=== PATIENT | female | born 1960 | race Caucasian/White ===

== ENCOUNTER 2018-12-30 06:49 | Day surgery (SDC) | payer BC ==
[~2018-12-30] VITALS: Ht 165.1 cm; Wt 53.5 kg
[2018-12-30] MEDS ORDERED: PRILOSEC 20MG20 MG PO (08:06)
[2018-12-30] MEDS ORDERED: CYMBALTA 20MG20 MG PO (08:06)
[2018-12-30] MEDS ORDERED: ALIGN (08:09)
[2018-12-30] MEDS ORDERED: BENTYL 10MG10 MG/CAP PO (08:09)
[2018-12-30] MEDS ORDERED: ONE-A-DAY ESSE1 EACH PO (08:10)
[2018-12-30] MEDS ORDERED: TYLENOL 325MG325 MG PO (08:11)
[2018-12-30] MEDS ORDERED: METAMUCIL3.4 GM/Dos (08:11)
[2018-12-30 08:12] VITALS: BP 108/68; PULSE 78; TEMP 98.4
--- NOTE | 2018-12-30 08:20 | NUR ---
TO RAQUEL FROM RADIOLOGY AT 0715- DAUGHTER AT BEDSIDE SLEEP LAB TECHNOLOGIST HERE TO DISCUSS DPOA
--- NOTE | 2018-12-30 08:55 | NUR ---
Initial visit; Patient and daughter thanked Lemon Grower for looking in on her and offering prayer prior to her 'Procedure.'
--- NOTE | 2018-12-30 10:44 | NUR ---
SW met with patient and daughter to complete advanced directives. Patient designated her daughter to be her DPOA-HC. SW and RN witnessed patient's signature. SW provided the original and extra copies to patient. SW also provided a copy for the chart.
[2018-12-30] MEDS ORDERED: NORCO 325 MG-51 TAB PO (13:39)
[2018-12-30 14:20] VITALS: BP 120/76; PULSE 73
--- NOTE | 2018-12-30 14:20 | NUR ---
TO RM 7 PER CART FROM PACU. ALERT ORIENTED X3, TALKING TO STAFF AND DAUGHTER. 02 SAT 97% ON ROOM AIR. COOL WASHCLOTH OVER FORHEAD. CONTINUES TO C/O SLIGHT NAUSEA. RESTING QUIETLY WITH EYES CLOSED.
[2018-12-30 14:35] VITALS: BP 123/73; PULSE 72
--- NOTE | 2018-12-30 14:35 | NUR ---
RECEIVED A FRESH COOL WASHCLOTH OVER FOREHEAD. RECEIVED ICE CHIPS.
[2018-12-30 14:44] VITALS: TEMP 97.5
[2018-12-30 14:50] VITALS: BP 129/75; PULSE 72
--- NOTE | 2018-12-30 14:50 | NUR ---
RECEIVED CRACKERS C/O HEADACHE AND INCISIONAL PAIN 06/27. C/O FEELING SLIGHTLY QUEZZY.
--- NOTE | 2018-12-30 15:00 | NUR ---
ATE 1 CRACKER AND TOLERATED WELL. C/O PAIN 2-3 AND DENIES NEED FOR PAIN MEDS. AMBULATED TO BATHROOM AND VOIDED.
--- NOTE | 2018-12-30 15:25 | NUR ---
RECEIVED DISCHARGE INSTRUCTIONS AND VERBALIZED UNDERSTANDING. DISCONTINUED IV AND INT- CATHETER INTACT. PATIENT GETTING DRESSED.
--- NOTE | 2018-12-30 15:58 | NUR ---
DISCHARGED PER WC BY NURSING STAFF TO PRIVATE CAR IN CARE OF DAUGHTER.
== END 2018-12-30 16:00 | disposition home or self-care (01) ==
LOC: SDCO 06:49
DX: C50.412 Malignant neoplasm of upper-outer quadrant of left female breast (principal); Z17.0 Estrogen receptor positive status [ER+]; K58.9 Irritable bowel syndrome, unspecified; F17.210 Nicotine dependence, cigarettes, uncomplicated; G47.33 Obstructive sleep apnea (adult) (pediatric); K21.9 Gastro-esophageal reflux disease without esophagitis; K44.9 Diaphragmatic hernia without obstruction or gangrene; F41.9 Anxiety disorder, unspecified; Z83.3 Family history of diabetes mellitus; Z82.3 Family history of stroke; Z82.49 Family history of ischemic heart disease and other diseases of the circulatory system
CPT/HCPCS: A9541; J2250; J2405; J2704; J3010; J7120

== ENCOUNTER 2018-12-30 22:29 | Emergency (ER) | payer BC ==
[~2018-12-30] VITALS: Ht 165.1 cm; Wt 53.6 kg
[~2018-12-30 22:29] MED LIST: ALIGN; BENTYL 10MG10 MG/CAP PO; CYMBALTA 20MG20 MG PO; METAMUCIL3.4 GM/Dos; NORCO 325 MG-51 TAB PO; ONE-A-DAY ESSE1 EACH PO; PRILOSEC 20MG20 MG PO; TYLENOL 325MG325 MG PO
[2018-12-30 22:40] VITALS: TEMP 97.9
[2018-12-30 22:56] LABS: BASO % 0.3 % (0.0-2.0); EOS # 0.1 (0.0-0.7); EOS % 0.7 % (0-4.0); GRAN # 8.1 (1.4-6.5); GRAN % 77.6 % (42.2-75.2); HEMOGLOBIN 12.1 g/dl (12.5-16.0); LYMPH # 1.2 (1.2-3.4); LYMPH % 11.4 % (20.0-51.0); MEAN CELL VOLUME 89 fl (80.0-100.0); MEAN CORPUSCULAR HEMOGLOBIN 30 pg (27.0-31.0); MEAN CORPUSCULAR HGB CONC 34 g/dl (33.0-37.0); MEAN PLATELET VOLUME 9.7 fl (7.4-10.4); MONO % 9.6 % (1.7-9.3); PLATELET COUNT 187 K/mm3 (130-400); RED BLOOD COUNT 4.03 M/mm3 (4.10-5.30); REDCELL DISTRIBUTION WIDTH-CV 13.1 % (11.5-14.5)
[2018-12-30 23:09] LABS: ALANINE AMINOTRANSFERASE 17 U/L (9-52); ALBUMIN 4.1 gm/dL (3.5-5.0); ALKALINE PHOSPHATASE 71 U/L (50-136); ANION GAP 8 mmol/L (7-16); AST,SGOT 28 U/L (15-37); BILIRUBIN,TOTAL 0.5 mg/dL (0.0-1.0); BLOOD UREA NITROGEN 21 mg/dL (7-17); C-REACTIVE PROTEIN 1.1 mg/dL (0.0-0.9); CALCIUM 9.3 mg/dL (8.4-10.2); CARBON DIOXIDE 27 mmol/L (22-30); CHLORIDE 103 mmol/L (98-107); CREATININE, serum 0.58 (0.52-1.25); GLUCOSE 133 mg/dL (74-106); POTASSIUM 3.9 mmol/L (3.4-5.0); SODIUM 138 mmol/L (137-145); TOTAL PROTEIN 7.3 gm/dL (6.4-8.2)
[2018-12-30 23:19] LABS: TROPONIN-I < 0.012 ng/mL (0.000-0.035)
[2018-12-31 00:47] LABS: COLLECTION METHOD CLEAN CATCH
[2018-12-31 00:52] LABS: MUCOUS Present /lpf; PH 5 (5-8); SQUAMOUS EPITHELIAL 0-2 /hpf; URINE APPEARANCE Clear; URINE BACTERIA None Seen /hpf; URINE BILIRUBIN Negative (NEGATIVE); URINE BLOOD Negative (NEGATIVE); URINE COLOR Yellow; URINE GLUCOSE Negative (NEGATIVE); URINE KETONE 1+ (NEGATIVE); URINE LEUKOCYTE ESTERASE Trace (NEGATIVE); URINE NITRATE Negative (NEGATIVE); URINE PROTEIN(semi-quant) Negative (NEGATIVE); URINE RBC 0-2 /hpf; URINE UROBILINOGEN Negative (NEGATIVE)
[2018-12-31 01:32] VITALS: BP 98/67; PULSE 70
== END 2018-12-31 01:34 | disposition home or self-care (01) ==
LOC: COL.ER 22:29
PROVIDERS: Emergency Medicine
DX: R53.1 Weakness (principal); F17.210 Nicotine dependence, cigarettes, uncomplicated; K58.9 Irritable bowel syndrome, unspecified; Z90.12 Acquired absence of left breast and nipple; Z85.3 Personal history of malignant neoplasm of breast
CPT/HCPCS: J2405; J7030

== ENCOUNTER 2019-01-11 09:19 | Day surgery (SDC) | payer BC ==
[~2019-01-11] VITALS: Ht 165.1 cm; Wt 52.0 kg
[2019-01-11 10:01] VITALS: BP 109/57; PULSE 80; TEMP 98
[2019-01-11] MEDS ORDERED: NORCO 325 MG-51 TAB PO (10:12)
--- NOTE | 2019-01-11 10:14 | NUR ---
TO RM AT 0931- CALL LIGHT IN REACH DAUGHTER AT BEDSIDE.
--- NOTE | 2019-01-11 11:07 | NUR ---
SCOPOLAMINE PATCH PLACED PER ORDER SALONI MANUSCRIPT READER
[2019-01-11 12:31] VITALS: TEMP 97.5
[2019-01-11 12:45] VITALS: BP 129/76; PULSE 73
--- NOTE | 2019-01-11 12:45 | NUR ---
TO RM 7 PER CART FROM PACU. ALERT ORIENTED X 3, TALKING TO STAFF AND DAUGHTER. DENIES PAIN OR DISCOMFORT. DENIES NAUSEA OR VOMITING. DRESSING CLEAN DRY INTACT. DALILA DRAIN HAS BLOOD NOTED IN TUBING,BUT NONE IN BULB.
[2019-01-11 12:50] VITALS: BP 131/75; PULSE 74
--- NOTE | 2019-01-11 12:50 | NUR ---
RECEIVED YULIYA AND CARLOS.
[2019-01-11 13:15] VITALS: BP 137/74; PULSE 76
--- NOTE | 2019-01-11 13:15 | NUR ---
AMBULATED TO BATHROOM WITH ASSIST AND TOLERATED WEL VOIDED AND AMBULATED BACK TO
--- NOTE | 2019-01-11 13:30 | NUR ---
RECEIVED DISCHARGE INSTRUCTIONS AND VERBALIZED UNDERSTANDING WITH DAUGHTER AT BEDSIDE. DR BARNES TALKED TO PATIENT DAUGHTER.
--- NOTE | 2019-01-11 13:45 | NUR ---
DISCHARGED PER WC BY NURSING STAFF TO PRIVATE CAR IN CARE OF DAUGHTER SAI
== END 2019-01-11 14:11 | disposition home or self-care (01) ==
LOC: SDCO 09:19
DX: M96.843 Postprocedural seroma of a musculoskeletal structure following other procedure (principal); Z90.12 Acquired absence of left breast and nipple; C50.412 Malignant neoplasm of upper-outer quadrant of left female breast; Z79.899 Other long term (current) drug therapy; K58.9 Irritable bowel syndrome, unspecified; G47.30 Sleep apnea, unspecified; F17.210 Nicotine dependence, cigarettes, uncomplicated; Z79.82 Long term (current) use of aspirin; G47.33 Obstructive sleep apnea (adult) (pediatric); K21.9 Gastro-esophageal reflux disease without esophagitis; K44.9 Diaphragmatic hernia without obstruction or gangrene; F41.9 Anxiety disorder, unspecified
CPT/HCPCS: J1100; J2405; J2704; J7120

== ENCOUNTER 2020-02-17 14:49 | Inpatient (IN) | payer BC ==
[~2020-02-17] VITALS: Ht 165.1 cm; Wt 58.0 kg
[2020-02-17] MEDS ORDERED: ASPIRIN 81M81 MG/TA2 PO (17:06)
[2020-02-17] MEDS ORDERED: ARIMIDEX1 MG PO (17:06)
[2020-02-17] MEDS ORDERED: CALCIUM 600MG+D1 TAB PO (17:07)
[2020-02-17] MEDS ORDERED: LIPITOR20 MG PO (17:07)
[2020-02-17] MEDS ORDERED: CHANTIX START M1 TAB PO (17:07)
[2020-02-17] MEDS ORDERED: OMEGA-3 1000 MG1 CAP PO (17:08)
[2020-02-17 17:29] VITALS: BP 110/71; PULSE 114; TEMP 98.3
[2020-02-17 18:03] LABS: BASO # 0.1 (0.0-0.2); BASO % 0.9 % (0.0-2.0); EOS # 0.9 (0.0-0.7); EOS % 7.9 % (0-4.0); GRAN # 7.4 (1.4-6.5); GRAN % 66.8 % (42.2-75.2); HEMOGLOBIN 11.5 g/dl (12.5-16.0); LYMPH # 1.5 (1.2-3.4); LYMPH % 13.6 % (20.0-51.0); MEAN CELL VOLUME 91 fl (80.0-100.0); MEAN CORPUSCULAR HEMOGLOBIN 30 pg (27.0-31.0); MEAN CORPUSCULAR HGB CONC 33 g/dl (33.0-37.0); MEAN PLATELET VOLUME 8.9 fl (7.4-10.4); MONO # 1.1 (0.1-0.6); PLATELET COUNT 389 K/mm3 (130-400); RED BLOOD COUNT 3.88 M/mm3 (4.10-5.30); REDCELL DISTRIBUTION WIDTH-CV 14.6 % (11.5-14.5)
[2020-02-17 18:06] LABS: HEMATOCRIT 35.1 % (37.0-47.0)
[2020-02-17 18:09] LABS: ALBUMIN 4.1 gm/dL (3.5-5.0); BILIRUBIN,TOTAL 0.4 mg/dL (0.0-1.0); CALCIUM 9.6 mg/dL (8.4-10.2); CREATININE, serum 0.61 (0.52-1.25); POTASSIUM 3.6 mmol/L (3.4-5.0); TOTAL PROTEIN 7.5 gm/dL (6.4-8.2)
--- NOTE | 2020-02-17 18:30 | NUR ---
Patient arrived to floor via EMS at approximately 1620. Patient was alert and oriented and able to ambulate to bathroom and transfer to and from bed with SBA. Colostomy to right abdomen has green liquid stool in bag. Midline incision is PRECIOUS, lucius in place, no redness, drainage, edema. NG tube to R nare is clamped, patient denies nausea, states she does have some intermittent abdominal cramping. Patient denies further needs, call light within reach.
[2020-02-17 19:45] VITALS: BP 118/69; PULSE 112; TEMP 98.4
[2020-02-17 23:27] VITALS: BP 118/75; PULSE 115; TEMP 98.5
[2020-02-18 04:25] VITALS: BP 111/78; PULSE 110; TEMP 97.6
--- NOTE | 2020-02-18 05:18 | NUR ---
Patient resting in bed not complaining of pain. I have emptied her ileostomy bag several times throughout the night. NG tube has 0 residual.
[2020-02-18 06:46] LABS: BASO # 0.1 (0.0-0.2); BASO % 0.8 % (0.0-2.0); EOS # 0.9 (0.0-0.7); GRAN # 6.6 (1.4-6.5); GRAN % 66.4 % (42.2-75.2); HEMOGLOBIN 11.4 g/dl (12.5-16.0); LYMPH # 1.3 (1.2-3.4); LYMPH % 12.8 % (20.0-51.0); MEAN CELL VOLUME 90 fl (80.0-100.0); MEAN CORPUSCULAR HEMOGLOBIN 30 pg (27.0-31.0); MEAN CORPUSCULAR HGB CONC 34 g/dl (33.0-37.0); MEAN PLATELET VOLUME 9.1 fl (7.4-10.4); MONO % 10.2 % (1.7-9.3); PLATELET COUNT 391 K/mm3 (130-400); RED BLOOD COUNT 3.77 M/mm3 (4.10-5.30); REDCELL DISTRIBUTION WIDTH-CV 14.8 % (11.5-14.5)
[2020-02-18 06:48] LABS: HEMATOCRIT 33.9 % (37.0-47.0)
[2020-02-18 06:52] LABS: INR 1.1 (0.8-3.0); PROTHROMBIN TIME 12.5 SECONDS (9.7-12.8)
[2020-02-18 06:55] LABS: BILIRUBIN,TOTAL 0.4 mg/dL (0.0-1.0); CALCIUM 9.4 mg/dL (8.4-10.2); CREATININE, serum 0.61 (0.52-1.25); TOTAL PROTEIN 7.4 gm/dL (6.4-8.2)
[2020-02-18 07:09] LABS: PRE ALBUMIN 24.6 mg/dL (17.6-36.0)
[2020-02-18 07:41] VITALS: BP 126/69; PULSE 108; TEMP 98.2
--- NOTE | 2020-02-18 08:15 | NUR ---
NGT residual check, no residual at this time.
--- NOTE | 2020-02-18 10:30 | NUR ---
Patient alert and oriented, answers questions appropriately. See assessment. Abdomen soft, non tender, non distended. Bowel sounds active x4 quads. Ileostomy present to RLQ, stoma pink and protruding. Stool and air noted in ostomy appliance. NGT in place to dependent drainage, no residual on check. NGT irrigated, flushes easily. Patient c/o pain in throat 05/30. No other c/o at this time.
[2020-02-18 11:38] VITALS: BP 131/66; PULSE 109; TEMP 98.3
--- NOTE | 2020-02-18 13:24 | NUR ---
Plan: Patient with reside with DTR until recovered. DTR Jackeline Ha . Assess: SW met with patient about her care and dc plan. Patient gave permission for sw to speak in front of her dtr. Patient reports that she resides in [facility] but will stay with her DTR locally. Alt. contact is son, Brandan Elena . Patient reports pcp is Dr. Jus Gould. RX obtained from [facility]. Patient interested in HHS, No DPOA, No DME use, and no concerns about obtaining medications. Patient indicated that she has no care concerns at the [facility]. Action: EDucated on Home health care and BCBS not covering, gave patient other resource like [facility] and other community supports. Will continue to folloe.
[2020-02-18 16:58] VITALS: BP 118/70; PULSE 110; TEMP 97.7
[2020-02-18 20:57] VITALS: BP 125/79; PULSE 102; TEMP 97.9
--- NOTE | 2020-02-18 21:49 | NUR ---
Patient resting in bed with no complaints of nausea. NG tube discontinued per orders. Patient tolerated well.
[2020-02-18 23:43] VITALS: BP 111/68; PULSE 104; TEMP 98.1
[2020-02-19 03:49] VITALS: BP 107/74; PULSE 95; TEMP 98.2
--- NOTE | 2020-02-19 04:52 | NUR ---
Patient resting in bed. Patient has no complaints of pain or nausea. Tolerating clear liquids well. Patient is voiding and has good output out of her ileostomy. Patient reports she slept better without the NG tube.
[2020-02-19 07:54] LABS: CALCIUM 8.9 mg/dL (8.4-10.2); CREATININE, serum 0.49 (0.52-1.25); MAGNESIUM 1.8 mg/dL (1.6-2.3); POTASSIUM 4.3 mmol/L (3.4-5.0)
[2020-02-19 08:04] VITALS: BP 111/64; PULSE 104; TEMP 97.9
[2020-02-19 11:12] VITALS: BP 121/66; PULSE 103; TEMP 98
[2020-02-19 16:14] VITALS: BP 103/72; PULSE 110; TEMP 98
--- NOTE | 2020-02-19 17:12 | NUR ---
[place] removed from midline incision. Tincture of benzion and steri-strips applied. Edges remain well approximated, no redness or drainage noted.
[2020-02-19 19:40] VITALS: BP 119/62; PULSE 106; TEMP 99.1
--- NOTE | 2020-02-19 22:29 | NUR ---
Patient resting in bed. Patient got up to use the bathroom walking steadily. She has no complaints of pain.
[2020-02-20] VITALS (7 sets, daily range): BP systolic 103–125; BP diastolic 63–71; PULSE 93–112; TEMP 97.5–98.9
--- NOTE | 2020-02-20 05:33 | NUR ---
Patient resting in bed. Patient had a little trouble falling asleep last night but had no complaints of pain. Patient is tolerating full liquid diet.
[2020-02-20 07:00] LABS: CALCIUM 9.4 mg/dL (8.4-10.2); CREATININE, serum 0.47 (0.52-1.25); PHOSPHOROUS 3.8 mg/dL (2.5-4.5); POTASSIUM 5.2 mmol/L (3.4-5.0)
--- NOTE | 2020-02-20 09:45 | NUR ---
HOSPITALIST TEAM ROUNDING, SEE ORDERS.
[2020-02-20 09:53] LABS: BASO # 0.1 (0.0-0.2); EOS # 1.1 (0.0-0.7); EOS % 12.2 % (0-4.0); GRAN # 5.6 (1.4-6.5); GRAN % 60.5 % (42.2-75.2); HEMOGLOBIN 10.9 g/dl (12.5-16.0); LYMPH # 1.4 (1.2-3.4); LYMPH % 15.3 % (20.0-51.0); MEAN CELL VOLUME 92 fl (80.0-100.0); MEAN CORPUSCULAR HEMOGLOBIN 30 pg (27.0-31.0); MEAN CORPUSCULAR HGB CONC 32 g/dl (33.0-37.0); MEAN PLATELET VOLUME 9.5 fl (7.4-10.4); MONO # 0.9 (0.1-0.6); MONO % 9.8 % (1.7-9.3); PLATELET COUNT 392 K/mm3 (130-400); RED BLOOD COUNT 3.67 M/mm3 (4.10-5.30); REDCELL DISTRIBUTION WIDTH-CV 14.7 % (11.5-14.5)
[2020-02-20 09:57] LABS: HEMATOCRIT 33.6 % (37.0-47.0)
--- NOTE | 2020-02-20 12:20 | NUR ---
First visit from chaplain Lawrence. No needs right now.
--- NOTE | 2020-02-20 20:49 | NUR ---
PT IN BED, IS ALERT AND ORIENTED X4. HAS BEEN EMPTYING ILEOSTOMY ON OWN. REPORTS GOOD APPETITE, INDEPENDENT IN ROOM. VOIDING WELL. HAS SL TO RIGHT FOREARM WITHOUT REDNESS OR SWELLING. TAKES HS MEDS INCLUDING ATIVAN 0.5MG PO NOW. STERI STRIPS TO ABD MIDLINE INCISION. DENIES PAIN. WILL MONITOR FOR CHANGES.
[2020-02-21 04:00] VITALS: BP 106/69; PULSE 108; TEMP 97.6
--- NOTE | 2020-02-21 06:00 | NUR ---
PT HAS BEEN EMPTYING OWN ILEOSTOMY THIS SHIFT. DENIES PAIN. UP INDEPENDENTLY IN ROOM AND CONTINUES TO VOID WELL.
[2020-02-21 07:05] VITALS: BP 114/70; PULSE 87; TEMP 99
[2020-02-21 07:06] LABS: CALCIUM 9.9 mg/dL (8.4-10.2); CREATININE, serum 0.52 (0.52-1.25); PHOSPHOROUS 4.8 mg/dL (2.5-4.5)
--- NOTE | 2020-02-21 08:17 | NUR ---
Patient in bed eating breakfast. Alert and oriented x 3. Assessment complete. Denies pain at this time. Ostomy appliance intact with Small amount of semi-liquid stool present, patient states she emptied her appliance early this AM. Midline incision with lucius, edges well approximated. Denies further needs at this time. Patient up independently in room.
--- NOTE | 2020-02-21 09:10 | NUR ---
Parakeet Raiser met with patient to review discharge plan. Patient still plans to return home with her daughter and has no concerns about discharge at this time.
--- NOTE | 2020-02-21 09:59 | NUR ---
Shift assessment complete. Alert and orientated, INT to R hand CDI, Ileostomy bag contains small amount loose light green stool, stoma pink and protruding. Active bowel sounds 4x quadrants. No abd distention noted. Midline abd incision CDI, wound edges perferated intact, steri strips intact. Feels confident about discharged home.
[2020-02-21 10:47] VITALS: BP 102/68; PULSE 112; TEMP 98.6
--- NOTE | 2020-02-21 13:00 | NUR ---
Discharge education provided to patient and daughter. Educated on signs and symptoms of infection. Educated on when to call provider and follow up appointment. Ostomy appliance changed, Educated patient and daughter on how to change appliance. Daughter states she has experience changing out ostomy appliances from previous job. All questions answered. Denies further needs at this time.
--- NOTE | 2020-02-21 14:00 | NUR ---
Patient out by wheelchair with surgical staff and family
--- NOTE | 2020-02-21 14:40 | NUR ---
Manufacturing Associate attended clinical rounds with the team and Hospitalist recommended Home Health for nursing as patient has a new Ostomy. BRYNN met with patient who selected [facility] out of [place] as she will be staying in [place] with her daughter for at least the next couple weeks. BRYNN contacted Julia at [facility] and faxed referral. After reviewing referral, Julia advised they could accept for PT/OT and Nursing. BRYNN faxed orders for PT/OT/Nursing to Julia at [facility]. BRYNN met with patient and patient's daughter to provide update on HH. Patient to discharge today. No additional needs at this time.
== END 2020-02-21 14:00 | disposition home health service (06) | DRG 393 ==
LOC: MEDICAL 14:49 → JCC 16:00
PROVIDERS: Physician Assistant; Student in an Organized Health Care Education/Training Program; ADMIT Internal Medicine
DX: K91.89 Other postprocedural complications and disorders of digestive system (principal); E43 Unspecified severe protein-calorie malnutrition; K56.7 Ileus, unspecified; D64.9 Anemia, unspecified; R00.0 Tachycardia, unspecified; F41.9 Anxiety disorder, unspecified; K58.1 Irritable bowel syndrome with constipation; F32.9 Major depressive disorder, single episode, unspecified; Z93.2 Ileostomy status; Z85.3 Personal history of malignant neoplasm of breast; Z86.73 Personal history of transient ischemic attack (TIA), and cerebral infarction without residual deficits; Z87.891 Personal history of nicotine dependence
CPT/HCPCS: 99223-AI; 99232-AI; 99239; A9284; C9113; J2060; J7030

== ENCOUNTER → 2020-04-26 | Outpatient (CLI) | payer BC ==
[~2020-04-26] MED LIST changes: +ARIMIDEX1 MG PO; +ASPIRIN 81M81 MG/TA2 PO; +CALCIUM 600MG+D1 TAB PO; +CHANTIX START M1 TAB PO; +LIPITOR20 MG PO; +OMEGA-3 1000 MG1 CAP PO
== END ==
LOC: COL.RAD 08:55
DX: K56.699 Other intestinal obstruction unspecified as to partial versus complete obstruction (principal); Z93.2 Ileostomy status

== ENCOUNTER 2020-05-04 08:13 | Inpatient (IN) | payer BC ==
[~2020-05-04] VITALS: Ht 292.1 cm; Wt 61.8 kg
[2020-05-16] VITALS (14 sets, daily range): BP systolic 91–131; BP diastolic 64–80; PULSE 87–118; TEMP 97.5–98.8
--- NOTE | 2020-05-16 06:45 | NUR ---
0551 PATIENT AMBULATED INTO [facility] DAY SURGERY UNIT WITH STEADY GAIT. PATIENT ALERT AND ORIENTED X 4. CONSENT EXPLAINED AND PATIENT SIGNED. LUNGS CTA. HEART SOUNDS S1,S2 AND REGULAR. PEDAL PULSES +2. EDEMA NOTED TO LOWER EXTREMTIES, NO PITTING. PATIENT ORIENTED TO CALL LIGHT. IV STARTED TO RIGHT WRIST WITH 18G BC WITHOUT PROBLEMS.
--- NOTE | 2020-05-16 10:15 | NUR ---
Pt discharged from PACU @ 0930. Awaiting bed availability. Pt able to tolerate sips of juice without nausea. Pain increased, 0.5mg of Dilaudid administered @ 0951. Pt rating pain 5/10 as tolerable. Serosanginous drainage to dressing changed at 1000. Old 4x4 removed and new one placed. Report called @ 1010. Pt to room 322 via cart @ 1015. Pt transported by A Emely CAMPOS with pt's belongings. Pt's daughter called and updated. Pt did not want to take am pills on an empty stomach, reported this to Mauro Fitzgerald RN.
--- NOTE | 2020-05-16 10:15 | NUR ---
PATIENT ADMITED INTO ROOM 322-2. ORIENTED X3 BUT DROWSY. VSS. C/O ABD PAIN WITH MOVEMENT. ABD INCISION WITH KAYLEE NOTED SMALL BLOODY DRAINAGE. PACU CHANGED ABD INCISION GAUZE BEFORE COMING UP TO THE FLOOR. BOWL SOUNDS HYPOACTIVE. NO C/O N/V. IV FLUIDS INFUSING INTO RIGHT WRIST IV. HEAD TO TOE ASSESSMENT COMPLETE. SCD'S TO BLE. PATIENT SLEEPING WITH LIGHTS TURNED DOWN. CALL LIGHT IN REACH.
[2020-05-16 14:46] LABS: HEMATOCRIT 34.4 % (37.0-47.0)
--- NOTE | 2020-05-16 17:30 | NUR ---
PATIENT CALLED OUT C/O SHARP PAIN IN SHOULDER AFTER SITTING UP. NURSING EDUCATED ABOUT POST OP GAS/AIR PAIN. HOB LOWERED AND WARM PACK APPLIED TO RIGHT SHOULDER. PATIENT REPORTS GAS PAIN IMPROVING. CHANGED ABD INCISION DRESSING, NOTED MOD AMOUNTS OF BLOODY DRAINAGE. APPLIED 4X4 GAUZE & HYPAFIX. NO OTHER NEEDS.
--- NOTE | 2020-05-16 20:58 | NUR ---
AMBULATES IN HALLWAY WITHOUT PROBLEM. TO BATHROOM BEFORE GOING TO BED, VOIDS WITHOUT PROBLEM. SL TO RIGHT WRIST. DRSG TO ABD D/I. HAS NOT PASSED FLATUS YET.
--- NOTE | 2020-05-16 21:02 | NUR ---
Falls Of Rough 1 tab po for pain 5/10 to abd.
[2020-05-17 04:00] VITALS: BP 123/68; PULSE 97; TEMP 97.9
--- NOTE | 2020-05-17 04:51 | NUR ---
PT AWAKE, REPORTS BELCHING BUT NO FLATUS. DENIES NEED FOR PAIN MEDS AT THIS TIME.
[2020-05-17 07:35] VITALS: BP 112/51; PULSE 105; PULSE 94; TEMP 98
--- NOTE | 2020-05-17 08:00 | NUR ---
PATIENT IS A&O. VSS. RATES ABD PAIN AT 3/10, DENIES NEED FOR PAIN MEDS. ABD INCISION NOTED VERY SMALL DRAINAGE, APPROX DIME SIZED, TO GAUZE. BOWL SOUNDS PRESENT, NOT PASSING GAS YET. TOLERATING FULL LIQUID DIET. NO C/O N/V. RIGHT WRIST IV TO INT. PATIENT AMBULATING INDEPENDENTLY. GAIT STEADY. HEAD TO TOE ASSESSMENT COMPLETE. NO OTHER NEEDS. CALL LIGHT IN REACH.
--- NOTE | 2020-05-17 10:57 | NUR ---
First visit from the furnace feeder. No needs right now.
--- NOTE | 2020-05-17 12:36 | NUR ---
Principal Associate met with patient to discuss discharge planning. Patient lives in [place] with her , Alek (ph#[phone]) and sees Dr. Johnson for primary care in [place]. Patient obtains medications from [facility] with no difficulties. Patient has a walker at home to use as needed and reports independence with ADLS. Patient has DPOA-HC in EMR which designates her daughter, Julia (ph#[phone]). Patient states she will stay with her daughter Julia in [place] for a couple days upon discharge before returning home. SW will continue to follow as needed.
[2020-05-17 12:49] VITALS: BP 100/54; PULSE 94; TEMP 98.5
[2020-05-17 16:33] VITALS: BP 100/52; PULSE 100; TEMP 97.5
[2020-05-17 20:04] VITALS: BP 99/50; PULSE 110; TEMP 97.4
--- NOTE | 2020-05-17 21:00 | NUR ---
Pt still hasn't passed gas. Ambulating in room without problem. Drsg to abd with old drainage. Is alert and oriented x4. Denies need for pain meds at this time.
[2020-05-17 23:49] VITALS: BP 112/50; PULSE 106; TEMP 98.3
[2020-05-18 04:32] VITALS: BP 112/55; PULSE 106; TEMP 98.3
--- NOTE | 2020-05-18 05:44 | NUR ---
Pt awake, has not had flatus yet, reports "its rumbling". Denies needs at this time.
--- NOTE | 2020-05-18 07:34 | NUR ---
Patient resting in bed. She is alert & oriented. Patient has minimal complatints of pain. Patient bowels quiet. Denies yet passing flatus. RLQ dressing intact. Abdomen soft. Int. Tolerated breakfast without nausea. Will monitor
[2020-05-18] MEDS ORDERED: ULTRAM 50MG TAB50 MG PO (08:08)
[2020-05-18 08:59] VITALS: BP 112/56; PULSE 109; TEMP 98
--- NOTE | 2020-05-18 09:22 | NUR ---
Patient up and ambulated halls, rounded. Anticipating discharge this afternoon. Patient did well. Student nurse assisting with cares.
--- NOTE | 2020-05-18 13:17 | NUR ---
End of clinical day. Report provided to primary nurse. Patient currently in her room, in her bed waiting to be discharged. Pt denies need for anything at this time.
--- NOTE | 2020-05-18 13:54 | NUR ---
Primary nurse was assisted with [id number] patient care by [employer] ADN student Rema Lockhart and [employer] ADM instructor Amna Hoyt RN-BC.
--- NOTE | 2020-05-18 14:00 | NUR ---
Patient ready for discharge. Her daughter here to take her home. Patient wanting to leave. She tolerated lunch & did well. We reviewed all discharge paperwork. Int dc. Script for Ultram given & we reviewed home med list. Activity & diet discussed. Patient denies questions or concerns, she was wheeled out with all belongings. Thankful for cares given
== END 2020-05-18 14:00 | disposition home or self-care (01) | DRG 331 ==
LOC: INPTSU 05-16 05:25 → SURG 05-16 07:30
PROVIDERS: ADMIT Surgery
PROC: 0DBB0ZZ Excision of Ileum, Open Approach (ICD-10-PCS; principal; 2020-05-16 07:30)
DX: K57.92 Diverticulitis of intestine, part unspecified, without perforation or abscess without bleeding (principal)
CPT/HCPCS: J0690; J1100; J1170; J1650; J2270; J2405; J2550; J2704; J2710; J2765; J3010; J7120

== ENCOUNTER 2020-06-06 04:44 | Inpatient (IN) | payer BC ==
[2020-06-06] VITALS (11 sets, daily range): BP systolic 98–118; BP diastolic 53–64; PULSE 85–108; TEMP 98.1–98.2
[~2020-06-06 04:44] MED LIST changes: +ULTRAM 50MG TAB50 MG PO
[2020-06-06 05:12] LABS: HEMOGLOBIN 10.6 g/dl (12.5-16.0); MEAN CELL VOLUME 83 fl (80.0-100.0); MEAN CORPUSCULAR HEMOGLOBIN 26 pg (27.0-31.0); MEAN CORPUSCULAR HGB CONC 32 g/dl (33.0-37.0); PLATELET COUNT 556 K/mm3 (130-400); RED BLOOD COUNT 4.05 M/mm3 (4.10-5.30); REDCELL DISTRIBUTION WIDTH-CV 18.7 % (11.5-14.5)
[2020-06-06 05:13] LABS: HEMATOCRIT 33.7 % (37.0-47.0)
[2020-06-06 05:25] LABS: ALBUMIN 3.6 gm/dL (3.5-5.0); BILIRUBIN,TOTAL 0.6 mg/dL (0.0-1.0); CALCIUM 9.4 mg/dL (8.4-10.2); CREATININE, serum 0.41 (0.52-1.25); POTASSIUM 3.2 mmol/L (3.4-5.0); TOTAL PROTEIN 7.9 gm/dL (6.4-8.2)
[2020-06-06 05:31] LABS: BAND 3 % (0-10); EOSINOPHIL 1 % (0-4); LYMPHOCYTE 21 % (20.0-51.0); NEUTROPHILS 64 % (42.0-75.2); PLATELET ESTIMATE INCREASED (NORMAL)
[2020-06-06 05:32] LABS: ANISOCYTOSIS 1+; HYPOCHROMIA 2+
[2020-06-06 05:56] LABS: C-REACTIVE PROTEIN 35.1 mg/dL (0.0-0.9)
--- NOTE | 2020-06-06 09:10 | NUR ---
PT BROUGHT INTO CT BY STAFF. TRNASFERED TO TABLE. MONTORING EQUIPMENT PLACED.
--- NOTE | 2020-06-06 10:00 | NUR ---
CALLED REPORT TO SLAVA. DR MCLAIN REMOVED 180 CC OF BROWNISH FOUL SMELLING FLUID. SAMPLE OF 60 CC TAKEN TO LAB. PT TAKEN TO ROOM 342 BY STAFF.
[2020-06-06] MEDS ORDERED: COLACE 100100 MG/CAP PO (10:24)
[2020-06-06] MEDS ORDERED: MIRALAX119G PO (10:25)
--- NOTE | 2020-06-06 10:34 | NUR ---
Pt has arrived from radiology. She does have a drain placed to the right upper quadrant. There is a foul smell to it. Incision with lucius intact, no drainage at this time. Dressings are CDI. Pt reports feeling much better than she did. Oriented her to her room, reports that she remembers from her previous stay.
--- NOTE | 2020-06-06 11:45 | NUR ---
Assisted patient to the restroom. She did well with standby assist. She did have complaints of pain to her mid/upper abd and requested some tylenol. Dr Rod called for orders, reported he would be in to see her soon.
--- NOTE | 2020-06-06 22:30 | NUR ---
FLUSHED DRAIN TUBE WITH 5CC NS, HAS PURULENT DRAINAGE COMING FROM ACCORDIAN DRAIN. PT TAKES ACETAMINOPHEN FOR PAIN WELL SCHEDULED TRAMADOL.
[2020-06-07 00:11] VITALS: BP 105/58; PULSE 93; TEMP 97.5
--- NOTE | 2020-06-07 00:15 | NUR ---
TAKES SCHEDULED TRAMADOL AT THIS TIME. IV ANTIBIOTIC INFUSING WITHOUT PROBLEM.
--- NOTE | 2020-06-07 04:40 | NUR ---
SCHEDULED TRAMADOL GIVEN. RATES PAIN TO ABD 1/10.
[2020-06-07 04:46] VITALS: BP 116/71; PULSE 85; TEMP 98
--- NOTE | 2020-06-07 05:30 | NUR ---
Pt reports sore throat, drinking fluids well. IV antibiotic started to right forearm site. Tylenol given for back pain. Has 70cc of purulent drainage from wound drain.
[2020-06-07 07:13] LABS: MEAN CELL VOLUME 86 fl (80.0-100.0); MEAN CORPUSCULAR HGB CONC 30 g/dl (33.0-37.0); MEAN PLATELET VOLUME 9.3 fl (7.4-10.4); PLATELET COUNT 524 K/mm3 (130-400); RED BLOOD COUNT 3.39 M/mm3 (4.10-5.30); REDCELL DISTRIBUTION WIDTH-CV 18.6 % (11.5-14.5)
[2020-06-07 07:27] LABS: CALCIUM 8.7 mg/dL (8.4-10.2); CREATININE, serum 0.38 (0.52-1.25); POTASSIUM 3.4 mmol/L (3.4-5.0)
[2020-06-07 07:41] LABS: HEMOGLOBIN 8.8 g/dl (12.5-16.0); MEAN CORPUSCULAR HEMOGLOBIN 26 pg (27.0-31.0)
[2020-06-07 08:04] LABS: ANISOCYTOSIS 2+; EOSINOPHIL 3 % (0-4); HYPERSEGMENTED POLYS PRESENT; HYPOCHROMIA 3+; LYMPHOCYTE 17 % (20.0-51.0); MYELOCYTE 1 % (0-0); NEUTROPHILS 70 % (42.0-75.2); PLATELET ESTIMATE INCREASED (NORMAL)
[2020-06-07 08:05] LABS: TOXIC GRANULATION PRESENT
[2020-06-07 08:59] VITALS: BP 112/60; PULSE 93; TEMP 97.7
--- NOTE | 2020-06-07 09:05 | NUR ---
No IS in room; RT called and no order for IS at this time.
--- NOTE | 2020-06-07 09:13 | NUR ---
Initial visit; Patient thanked Wrap Yarn Sorter for looking in on her and spoke of her health issues when Wrap Yarn Sorter inquired. Patient's pain has lessened and was receptive to Wrap Yarn Sorter keeping her in Wrap Yarn Sorter's prayers. Wrap Yarn Sorter offered God's blessings.
--- NOTE | 2020-06-07 09:34 | NUR ---
SW met with the patient to discuss discharge plan. The patient lives in [place] with her , Alek (ph#[phone]). She reports independence with ADLs and does not have any DME. The patient's PCP is Dr. Saeed Johnson and she receives her medications from [facility]. She reports no difficulties obtaining her meds. The patient's DPOA-HC is in EMR and it designates her daughter, Em Arora (ph#[phone]). The patient plans to return home with her upon discharge. No additional needs at this time.
--- NOTE | 2020-06-07 09:59 | NUR ---
Patient alert and oriented, answers questions appropriately. See assessment. Abdomen soft, non tender, non distended. Bowel sounds active x4 quads. No flatus, no bowel movement. Abscess drain in place to RUQ, dressing CDI, draining scant amount of brown drainage. Previous ostomy site to RUQ with incision well approximated, lucius intact, dressing changed. Post op exercises reviewed with patient, no c/o at this.
[2020-06-07 12:53] VITALS: BP 119/61; PULSE 96; TEMP 97.5
[2020-06-07 15:44] VITALS: BP 119/68; PULSE 105; TEMP 97.6
--- NOTE | 2020-06-07 17:54 | NUR ---
Abscess drain flushed with 5ml NS at approx 0930 this am.
[2020-06-07 20:03] VITALS: BP 117/62; PULSE 95; TEMP 97.9
--- NOTE | 2020-06-07 20:33 | NUR ---
IRRIGATED WOUND DRAIN WITH 5CC NS, MINIMAL DRAINAGE IN BAG. REPORTS PAIN 04/29. SCHEDULED TRAMADOL GIVEN WITH HS MEDS. UP WITH WALKER TO BATHROOM, STEADY GAIT. SL TO RT FOREARM, FLUSHES WELL.
[2020-06-08 00:27] VITALS: BP 124/68; PULSE 101; TEMP 97.5
--- NOTE | 2020-06-08 04:15 | NUR ---
MEDICATED WITH SCHEDULED TRAMADOL. REPORTS GETTING "A LITTLE" SLEEP.
[2020-06-08 04:50] VITALS: BP 120/67; PULSE 95; TEMP 97.6
[2020-06-08 07:10] LABS: MEAN CELL VOLUME 89 fl (80.0-100.0); MEAN CORPUSCULAR HGB CONC 29 g/dl (33.0-37.0); MEAN PLATELET VOLUME 9.3 fl (7.4-10.4); RED BLOOD COUNT 4.17 M/mm3 (4.10-5.30); REDCELL DISTRIBUTION WIDTH-CV 18.6 % (11.5-14.5)
[2020-06-08 07:13] LABS: HEMATOCRIT 36.9 % (37.0-47.0); HEMOGLOBIN 10.8 g/dl (12.5-16.0); MEAN CORPUSCULAR HEMOGLOBIN 26 pg (27.0-31.0); PLATELET COUNT 642 K/mm3 (130-400)
[2020-06-08 07:37] VITALS: BP 123/63; PULSE 101; TEMP 97.2
[2020-06-08 08:22] LABS: ANISOCYTOSIS 2+; BAND 1 % (0-10); EOSINOPHIL 4 % (0-4); HYPOCHROMIA 3+; LYMPHOCYTE 20 % (20.0-51.0); METAMYELOCYTE 3 % (0-0); MYELOCYTE 6 % (0-0); NEUTROPHILS 57 % (42.0-75.2); PLATELET ESTIMATE INCREASED (NORMAL)
--- NOTE | 2020-06-08 08:59 | NUR ---
Follow-up visit; Patient thanked Associate Product Manager for looking in on her again. Dionna stated she is doing a lot better. Associate Product Manager offered God's blessings.
[2020-06-08 11:21] VITALS: BP 120/72; PULSE 102; TEMP 97.7
[2020-06-08] MEDS ORDERED: FLAGYL500 MG PO (13:53)
[2020-06-08] MEDS ORDERED: AMOXICILLIN 8751 TAB PO (13:53)
[2020-06-08] MEDS ORDERED: ULTRAM 50MG TAB50 MG PO (13:54)
[2020-06-08] MEDS ORDERED: LEVAQUIN 5500 MG/TA1 PO (14:15)
--- NOTE | 2020-06-08 14:42 | NUR ---
Discharge instructions reviewed with patient and daughter, verbalized understanding. Drain care reviewed. Contrast for CT scan sent with patient. Discharged via wheelchair to auto/home with daughter at 1440.
== END 2020-06-08 14:40 | disposition home or self-care (01) | DRG 863 ==
LOC: COL.ER 04:44 → SURG 07:28
PROVIDERS: Emergency Medicine; ADMIT Surgery
PROC: 0W9G30Z Drainage of Peritoneal Cavity with Drainage Device, Percutaneous Approach (ICD-10-PCS; principal; 2020-06-06)
DX: T81.43XA Infection following a procedure, organ and space surgical site, initial encounter (principal); Z87.891 Personal history of nicotine dependence; Z90.49 Acquired absence of other specified parts of digestive tract; Z85.3 Personal history of malignant neoplasm of breast; Y83.8 Other surgical procedures as the cause of abnormal reaction of the patient, or of later complication, without mention of misadventure at the time of the procedure
CPT/HCPCS: A9284; G0378; J1650; J2250; J2543; J3010; J7030; Q9967

== ENCOUNTER 2020-06-09 19:03 | Inpatient (IN) | payer BC, MEDICAID ==
[~2020-06-09] VITALS: Ht 165.1 cm; Wt 57.2 kg
[~2020-06-09 19:03] MED LIST changes: +AMOXICILLIN 8751 TAB PO; +COLACE 100100 MG/CAP PO; +FLAGYL500 MG PO; +LEVAQUIN 5500 MG/TA1 PO; +MIRALAX119G PO
[2020-06-09 20:01] LABS: MEAN CELL VOLUME 86 fl (80.0-100.0); MEAN CORPUSCULAR HEMOGLOBIN 26 pg (27.0-31.0); MEAN CORPUSCULAR HGB CONC 31 g/dl (33.0-37.0); MEAN PLATELET VOLUME 8.6 fl (7.4-10.4); PLATELET COUNT 697 K/mm3 (130-400); RED BLOOD COUNT 4.22 M/mm3 (4.10-5.30); REDCELL DISTRIBUTION WIDTH-CV 18.4 % (11.5-14.5)
[2020-06-09 20:05] LABS: HEMATOCRIT 36.1 % (37.0-47.0)
[2020-06-09 20:13] LABS: ALBUMIN 3.5 gm/dL (3.5-5.0); BILIRUBIN,TOTAL 0.4 mg/dL (0.0-1.0); CALCIUM 9.3 mg/dL (8.4-10.2); CREATININE, serum 0.4 (0.52-1.25); POTASSIUM 3.3 mmol/L (3.4-5.0); TOTAL PROTEIN 7.5 gm/dL (6.4-8.2)
[2020-06-09 20:18] LABS: BAND 4 % (0-10); EOSINOPHIL 2 % (0-4); HYPOCHROMIA 1+; LYMPHOCYTE 17 % (20.0-51.0); METAMYELOCYTE 3 % (0-0); MYELOCYTE 2 % (0-0); NEUTROPHILS 64 % (42.0-75.2)
[2020-06-09 20:19] LABS: ANISOCYTOSIS 1+; OVALOCYTES 1+; PLATELET ESTIMATE INCREASED (NORMAL); POIKILOCYTOSIS 1+; STOMATOCYTE 1+
[2020-06-09 20:20] LABS: TEAR DROP CELLS 1+
[2020-06-09 23:53] VITALS: BP 121/66; PULSE 86; TEMP 98
[2020-06-10] VITALS: BP 121/66; PULSE 86; TEMP 98
--- NOTE | 2020-06-10 00:10 | NUR ---
CHANGED DRSG TO RLQ ABD INCISION WITH STAPLS- BROWNISH SEROUS DRAINAGE NOTED. NO DRAINAGE FROM DRAIN BAG. PT FEELING BETTER EMOTIONAL AND PAIN CONTROLLED AT THIS TIME. ASSISTED TO BR. VOIDED AMBE CLEAR URINE. PT WEARS BRIEFS FOR STRESS INCONTINENCE. BACK TO BED. CALL LIGHT IN REACH. BED ALARM SET. ON FALL RISK D/T WEAKNESS.
[2020-06-10 04:13] VITALS: BP 110/62; PULSE 97; TEMP 98.4
--- NOTE | 2020-06-10 04:47 | NUR ---
HAVING CRAMPING ABD PAIN. MOANING. SEE MAR FOR MS GIVEN. PT DENIES NEED TO VOID YET. INSTRUCTED NEED FOR UA WITH NEXT VOID. CALL LIGHT IN REACH.
--- NOTE | 2020-06-10 04:50 | NUR ---
EMPTIED DRAIN BAG WITH 40CC OF LIGHT SALDANA DRAINAGE. DRAIN SITE HAS SM AMT OF SEROUS DRG NOTED. ABD INCISION WITH HARPER HAS SMALL AMT SEROUS DRAG. BOTH AREAS WITH GAUZE DRSG. HAVING GOOD PAIN RELIEF FROM MS.
[2020-06-10 06:07] LABS: MEAN CELL VOLUME 87 fl (80.0-100.0); MEAN CORPUSCULAR HGB CONC 31 g/dl (33.0-37.0); MEAN PLATELET VOLUME 8.5 fl (7.4-10.4); RED BLOOD COUNT 3.43 M/mm3 (4.10-5.30); REDCELL DISTRIBUTION WIDTH-CV 18.7 % (11.5-14.5)
[2020-06-10 06:08] LABS: HEMATOCRIT 29.8 % (37.0-47.0); HEMOGLOBIN 9.1 g/dl (12.5-16.0); MEAN CORPUSCULAR HEMOGLOBIN 27 pg (27.0-31.0); PLATELET COUNT 539 K/mm3 (130-400)
[2020-06-10 06:15] LABS: ALBUMIN 2.9 gm/dL (3.5-5.0); BILIRUBIN,TOTAL 0.3 mg/dL (0.0-1.0); CALCIUM 8.4 mg/dL (8.4-10.2); CREATININE, serum 0.39 (0.52-1.25); POTASSIUM 3.3 mmol/L (3.4-5.0); TOTAL PROTEIN 6.3 gm/dL (6.4-8.2)
--- NOTE | 2020-06-10 06:39 | NUR ---
UA SENT TO LAB.
[2020-06-10 06:55] LABS: COLLECTION METHOD CLEAN CATCH
[2020-06-10 07:49] LABS: MUCOUS Present /lpf; PH 6 (5-8); SQUAMOUS EPITHELIAL 0-2 /hpf; URINE APPEARANCE Clear; URINE BACTERIA None Seen /hpf; URINE BILIRUBIN Negative (NEGATIVE); URINE BLOOD Negative (NEGATIVE); URINE COLOR Yellow; URINE GLUCOSE Negative (NEGATIVE); URINE KETONE Negative (NEGATIVE); URINE LEUKOCYTE ESTERASE Trace (NEGATIVE); URINE NITRATE Negative (NEGATIVE); URINE PROTEIN(semi-quant) Negative (NEGATIVE); URINE RBC 0-2 /hpf; URINE UROBILINOGEN Negative (NEGATIVE)
[2020-06-10 07:57] VITALS: BP 126/68; PULSE 97; TEMP 98.5
[2020-06-10 11:48] VITALS: BP 126/71; PULSE 100; TEMP 97.9
[2020-06-10 15:10] VITALS: BP 135/82; PULSE 101; TEMP 98.3
--- NOTE | 2020-06-10 18:30 | NUR ---
Patient has been doing well today. She sat up in the chair his afternoon. Changed the dressing to right lower abdomen twice today. Morphine given as needed for pain. No complaints of nausea. Her reddness to her abdomen has not changed this shift. Scant drainage around the drain site. Magna to incision are intact. No other changes at this time. Call light within reach.
--- NOTE | 2020-06-10 19:50 | NUR ---
NOTIFIED DR SOSA FOR CLARIFICATION ORDER ON ANTIBIOTICS. NEW ORDER.
--- NOTE | 2020-06-10 20:00 | NUR ---
PT WEEPING. VERY ANXIOUS. NOTIFIED DR SOSA NEW ORDER. HAVING LEVEL 7/10 ABD PAIN- CRAMPING. SEE MAR NO FLATUS NOTED. DRAIN TO DRG BAG WONT HOLD SUCTION. MIN BROWN DRG WITH REDISH COLOR IN TUBING. CALL LIGHT IN REACH. BED ALARMS SET. SCD'S ON BILAT.
[2020-06-10 21:24] VITALS: BP 131/75; PULSE 99; TEMP 99.3
[2020-06-11 01:37] VITALS: BP 124/75; PULSE 100; TEMP 98.5
[2020-06-11 04:12] VITALS: BP 135/72; PULSE 96; TEMP 98
[2020-06-11 06:42] LABS: CALCIUM 8.4 mg/dL (8.4-10.2); CREATININE, serum 0.35 (0.52-1.25); POTASSIUM 3.3 mmol/L (3.4-5.0)
[2020-06-11 06:43] LABS: MEAN CELL VOLUME 87 fl (80.0-100.0); MEAN CORPUSCULAR HGB CONC 30 g/dl (33.0-37.0); MEAN PLATELET VOLUME 8.7 fl (7.4-10.4); PLATELET COUNT 463 K/mm3 (130-400); RED BLOOD COUNT 3.37 M/mm3 (4.10-5.30); REDCELL DISTRIBUTION WIDTH-CV 18.5 % (11.5-14.5)
[2020-06-11 07:34] LABS: HEMATOCRIT 29.2 % (37.0-47.0); HEMOGLOBIN 8.7 g/dl (12.5-16.0); MEAN CORPUSCULAR HEMOGLOBIN 26 pg (27.0-31.0)
[2020-06-11 08:00] VITALS: BP 131/75; PULSE 100; TEMP 98.8
[2020-06-11 11:10] VITALS: BP 117/66; PULSE 99; TEMP 97.5
[2020-06-11 11:10] LABS: ALBUMIN 2.9 gm/dL (3.5-5.0); BILIRUBIN,TOTAL 0.4 mg/dL (0.0-1.0); CALCIUM 8.4 mg/dL (8.4-10.2); CREATININE, serum 0.35 (0.52-1.25); PHOSPHOROUS 3.9 mg/dL (2.5-4.5); POTASSIUM 3.3 mmol/L (3.4-5.0); TOTAL PROTEIN 6.2 gm/dL (6.4-8.2)
[2020-06-11 11:17] LABS: PRE ALBUMIN 21.5 mg/dL (17.6-36.0)
--- NOTE | 2020-06-11 12:01 | NUR ---
First visit from the sales demonstrator. No needs right now.
--- NOTE | 2020-06-11 14:26 | NUR ---
SW met with the patient to discuss discharge plan and re-admit. The patient recently discharged from the hospital, 06/08, and went and stayed with her daughter, Em, in [place]. She states that she picked up her medications and took them as prescribed. She presented to the ED yesterday with severe cramp like pain in her abdomen and nausea. The patient lives in [place] with her , Alek (ph#[phone]). She reports independence with ADLs and does not have any DME. The patient's PCP is Dr. Saeed Johnson and she receives her medications from [facility]. The patient's DPOA-HC is in EMR and it designates her daugher, Em Arora (ph#[phone]). The patient plans to return to Em's home upon discharge and stay with her for awhile. SW discussed home health and it's benefits. The patient states that she has had home health from [facility] in the past, but is not interested in home health at this time. SW to continue to follow.
[2020-06-11 15:58] VITALS: BP 113/54; PULSE 101; TEMP 98.4
[2020-06-11 19:45] VITALS: BP 107/61; PULSE 91; TEMP 97.8
--- NOTE | 2020-06-11 21:44 | NUR ---
PT REPORTING NAUSEA AND NOT FEELING WELL. ZOFRAN 4MG IVP GIVEN AND AMBULATED IN HALLWAY WITH STAFF FOR GAS PAINS. HAS RT PICC WITH TPN INFUSING WITHOUT PROBLEM. HAS WOUND DRAIN WITH SCANT DRAINAGE, WHEN FLUSHED, LEAKS AT INSERTION SITE. HAS GAUZE DRSG TO OLD ILEOSTOMY SITE, HARPER HAVE BEEN REMOVED, DRSG CHANGED AT THIS TIME.
[2020-06-12 00:29] VITALS: BP 125/63; PULSE 92; TEMP 98.1
[2020-06-12 03:48] VITALS: BP 130/65; PULSE 84; TEMP 98.2
--- NOTE | 2020-06-12 05:00 | NUR ---
MEDICATED WITH MORPHINE 2MG IVP FOR PAIN TO ABD. IS ALERT AND ORIENTED. NO STOOLS THIS SHIFT.
[2020-06-12 07:10] VITALS: BP 105/70; PULSE 93; TEMP 97.8
[2020-06-12 07:23] LABS: MEAN CELL VOLUME 85 fl (80.0-100.0); MEAN CORPUSCULAR HEMOGLOBIN 26 pg (27.0-31.0); MEAN CORPUSCULAR HGB CONC 31 g/dl (33.0-37.0); MEAN PLATELET VOLUME 8.5 fl (7.4-10.4); PLATELET COUNT 480 K/mm3 (130-400); REDCELL DISTRIBUTION WIDTH-CV 18.5 % (11.5-14.5)
[2020-06-12 07:24] LABS: HEMATOCRIT 32.4 % (37.0-47.0)
[2020-06-12 07:40] LABS: ALBUMIN 3.1 gm/dL (3.5-5.0); BILIRUBIN,TOTAL 0.2 mg/dL (0.0-1.0); CALCIUM 8.6 mg/dL (8.4-10.2); CREATININE, serum 0.4 (0.52-1.25); MAGNESIUM 1.9 mg/dL (1.6-2.3); PHOSPHOROUS 3.7 mg/dL (2.5-4.5); POTASSIUM 4.1 mmol/L (3.4-5.0); TOTAL PROTEIN 6.6 gm/dL (6.4-8.2)
[2020-06-12 08:06] LABS: BAND 10 % (0-10); EOSINOPHIL 2 % (0-4); LYMPHOCYTE 15 % (20.0-51.0); METAMYELOCYTE 3 % (0-0); NEUTROPHILS 60 % (42.0-75.2)
[2020-06-12 08:07] LABS: PLATELET ESTIMATE INCREASED (NORMAL)
--- NOTE | 2020-06-12 08:30 | NUR ---
Dressing changed to RUQ incision and drain site. Moderate amount of brown drainage noted to both dressings.
--- NOTE | 2020-06-12 08:38 | NUR ---
Pt alert, sittin up in bed. Pt up to void w/help. Tolerates activity well. Output as chart. Pt back to bed w/dressing and drain intact.
--- NOTE | 2020-06-12 11:03 | NUR ---
Patient alert and oriented, answers questions appropriately. See assessment. Abdomen soft, non tender, non distended. Bowel sounds active x4 quads. +Flatus. +Bowel movement. Incision to RUQ with moderate amount of brown drainage noted, area cleansed, dressing changed. Abscess drain to RUQ with moderate amount of brown drainage noted to dressing, dressing changed. PICC in place to RUE, TPN infusing. Patient c/o generalized abdominal pain 2. No other c/o at this time.
[2020-06-12 11:48] VITALS: BP 102/65; PULSE 96; TEMP 97.2
[2020-06-12 16:28] VITALS: BP 108/54; PULSE 89; TEMP 98.2
[2020-06-12 19:58] VITALS: BP 107/47; PULSE 92; TEMP 97.7
--- NOTE | 2020-06-12 20:04 | NUR ---
Report received, assumed care for prescriptionist. Assessment complete. VS stable. A&Ox3. Denies nausea/shortness of breath. C/O pain to right upper quadrant-described as constant ache-rating pain 04/29. Scheduled tramadol given. Plan of care discussed for this shift to include HS meds/pain meds/dressing change. Denies questions/concerns. Call light in reach. will monitor.
--- NOTE | 2020-06-13 19:50 | NUR ---
Report received, assumed care for cnc machinist 2nd shift. Assessment complete. A&Ox3. Denies nausea/shortness of breath. Rating pain 6/10 to abdomen-described as constant throbbing-meds given per dr order. Dressing to right lower [id number]. has not tolerated much PO-states she has not appetite. +flatus/small BM. Voiding well. Plan of care discussed for this shift to include HS meds/antibiotics/pain control/calling for questions/concerns. Denies needs. Call light in reach. Will monitor.
[2020-06-13 20:00] VITALS: BP 107/64; PULSE 103; TEMP 97.9
[2020-06-14] VITALS (7 sets, daily range): BP systolic 94–109; BP diastolic 48–66; PULSE 68–101; TEMP 97.5–98.4
--- NOTE | 2020-06-14 04:41 | NUR ---
Called with c/o pain/nausea. Rating pain 6/10 on pain scale-described as constant throbbing to abdomen. Morphine given per dr order. Also given Zofran. Denies shortness of breath. States she is still passing gas/voiding without difficulty. TPN continues to infuse to right upper arm PICC at 58ml/hr. Denies any other questions/concerns. Call light in reach. Will monitor.
[2020-06-14 06:45] LABS: BASO # 0.1 (0.0-0.2); BASO % 0.5 % (0.0-2.0); EOS # 0.2 (0.0-0.7); EOS % 2.5 % (0-4.0); GRAN # 6.6 (1.4-6.5); GRAN % 67.1 % (42.2-75.2); LYMPH # 1.7 (1.2-3.4); LYMPH % 17.3 % (20.0-51.0); MEAN CELL VOLUME 87 fl (80.0-100.0); MEAN CORPUSCULAR HGB CONC 30 g/dl (33.0-37.0); MEAN PLATELET VOLUME 9.1 fl (7.4-10.4); MONO # 1.1 (0.1-0.6); MONO % 11.2 % (1.7-9.3); PLATELET COUNT 416 K/mm3 (130-400); RED BLOOD COUNT 3.73 M/mm3 (4.10-5.30); REDCELL DISTRIBUTION WIDTH-CV 19.3 % (11.5-14.5)
[2020-06-14 06:59] LABS: CALCIUM 9.3 mg/dL (8.4-10.2); CREATININE, serum 0.46 (0.52-1.25); MAGNESIUM 2.2 mg/dL (1.6-2.3); PHOSPHOROUS 4.6 mg/dL (2.5-4.5); POTASSIUM 4.2 mmol/L (3.4-5.0)
[2020-06-14 07:00] LABS: HEMATOCRIT 32.6 % (37.0-47.0); HEMOGLOBIN 9.7 g/dl (12.5-16.0); MEAN CORPUSCULAR HEMOGLOBIN 26 pg (27.0-31.0)
--- NOTE | 2020-06-14 08:56 | NUR ---
*Late entry-06/13/20* The patient's RN notified BRYNN that the patient is losing her job and would be interested in applying for disability and Medicaid. BRYNN consulted Financial Counselor, May.
[2020-06-14 10:38] LABS: HEMATOCRIT 33.9 % (37.0-47.0); HEMOGLOBIN 10.2 g/dl (12.5-16.0); MEAN CELL VOLUME 88 fl (80.0-100.0); MEAN CORPUSCULAR HEMOGLOBIN 26 pg (27.0-31.0); MEAN CORPUSCULAR HGB CONC 30 g/dl (33.0-37.0); MEAN PLATELET VOLUME 8.9 fl (7.4-10.4); PLATELET COUNT 461 K/mm3 (130-400); RED BLOOD COUNT 3.87 M/mm3 (4.10-5.30)
[2020-06-14 10:40] LABS: ANISOCYTOSIS 1+; BAND 4 % (0-10); HYPOCHROMIA 2+; LYMPHOCYTE 12 % (20.0-51.0); MYELOCYTE 1 % (0-0); NEUTROPHILS 74 % (42.0-75.2); PLATELET ESTIMATE INCREASED (NORMAL); POLYCHROMASIA 1+
--- NOTE | 2020-06-14 11:40 | NUR ---
BRYNN was notified the patient would like to speak to BRYNN. BRYNN met with the patient. The patient reports that she actually already has Medicaid and provided BRYNN with the card. BRYNN emailed a copy of the Medicaid card to financial counseling.
[2020-06-14 12:01] LABS: PRE ALBUMIN 25.4 mg/dL (17.6-36.0)
--- NOTE | 2020-06-14 13:42 | NUR ---
End of clinical day, patient is currently resting in bed, call light within reach. Wound site clear, dry, and free of drainage.
--- NOTE | 2020-06-14 18:30 | NUR ---
Patient has been doing well today. TPN will finish this evening. Turned the rate down to half, to run at 28ml/hr for a couple hours. Pain for the most part has been controlled with ultram. She needed morphine once this afternoon for pain at 7-8 joanna 0-10scale. Dressing to abdomen changed once today. NO complaints of nausea. Tolerating low fiber diet without issues. She had a small bowel movement around lunch time. No other changes at this time. Call light within reach.
--- NOTE | 2020-06-14 20:00 | NUR ---
Pt in bed, has TPN infusing to right PICC at slow rate, will DC at 2230. Initiated Flagyl IV, infusing well. Takes HS meds without problem. Drsg to abd changed, minimal serous fluid on gauze. Voiding and having stools without problem.
--- NOTE | 2020-06-14 22:30 | NUR ---
DC'd TPN, had been hanging for 24hours.
[2020-06-15 03:58] VITALS: BP 110/59; PULSE 97; TEMP 98
--- NOTE | 2020-06-15 05:00 | NUR ---
SCHEDULED TRAMADOL AND PROTONIX GIVEN. PT HAS NOT HAD ANY MORPHINE THIS SHIFT.
[2020-06-15 06:28] LABS: CALCIUM 9.3 mg/dL (8.4-10.2); CREATININE, serum 0.42 (0.52-1.25)
[2020-06-15 07:31] VITALS: BP 111/68; PULSE 96; TEMP 98
[2020-06-15 11:55] VITALS: BP 112/68; PULSE 106; TEMP 97.5
[2020-06-15 13:32] VITALS: BP 114/71; PULSE 121; TEMP 97.6
--- NOTE | 2020-06-15 13:57 | NUR ---
Patient c/o "heart racing" at approx 1340. Heart rate 120-130, pulse palpable and even. Dr Rod notified, orders obtained. Irina with hospitalist program notified of consult. Tele initiated. Daughter Julia updated per patients request.
[2020-06-15 15:10] LABS: BASO # 0.1 (0.0-0.2); BASO % 0.4 % (0.0-2.0); EOS # 0.2 (0.0-0.7); EOS % 1.8 % (0-4.0); GRAN # 8.3 (1.4-6.5); GRAN % 73.1 % (42.2-75.2); LYMPH # 1.6 (1.2-3.4); LYMPH % 13.7 % (20.0-51.0); MEAN CELL VOLUME 85 fl (80.0-100.0); MEAN CORPUSCULAR HEMOGLOBIN 27 pg (27.0-31.0); MEAN CORPUSCULAR HGB CONC 32 g/dl (33.0-37.0); MEAN PLATELET VOLUME 8.7 fl (7.4-10.4); MONO # 1.1 (0.1-0.6); MONO % 9.9 % (1.7-9.3); PLATELET COUNT 416 K/mm3 (130-400); RED BLOOD COUNT 4.13 M/mm3 (4.10-5.30); REDCELL DISTRIBUTION WIDTH-CV 19.4 % (11.5-14.5)
[2020-06-15 15:11] LABS: HEMATOCRIT 34.9 % (37.0-47.0)
--- NOTE | 2020-06-15 15:14 | NUR ---
Dr Simms here to see patient. Irina, Hospitalist RAMONA here to see patient.
[2020-06-15 16:00] VITALS: BP 120/73; PULSE 117; TEMP 97.6
--- NOTE | 2020-06-15 17:47 | NUR ---
NGT inserted into left nare, connected to LIS, immediate return of brown drainage.
--- NOTE | 2020-06-15 20:00 | NUR ---
PT IN BED. HAS NGT TO LEFT NARE, PLACEMENT CONFIRMED WITH AIR BOLUS. HAS SALDANA DRAINAGE IN CANNISTER AND TUBING. IS ALERT AND ORIENTED X4. NO DRSG TO ABD, NO DRAINAGE FROM OLD ILEOSTOMY SITE OR OLD DRAIN SITE. VOIDING WITHOUT DIFFICULTY. IVF TO RIGHT PICC.
[2020-06-15 20:57] VITALS: BP 114/66; PULSE 100; TEMP 97.4
[2020-06-15 21:09] LABS: COLLECTION METHOD CLEAN CATCH
[2020-06-15 21:25] LABS: AMORPHOUS CRYSTAL Present /uL; PH 8 (5-8); SQUAMOUS EPITHELIAL 0-2 /hpf; URINE APPEARANCE Cloudy; URINE BACTERIA None Seen /hpf; URINE BILIRUBIN Negative (NEGATIVE); URINE BLOOD Negative (NEGATIVE); URINE COLOR Yellow; URINE GLUCOSE Negative (NEGATIVE); URINE KETONE Negative (NEGATIVE); URINE LEUKOCYTE ESTERASE Negative (NEGATIVE); URINE NITRATE Negative (NEGATIVE); URINE PROTEIN(semi-quant) Negative (NEGATIVE); URINE RBC 0-2 /hpf; URINE UROBILINOGEN Negative (NEGATIVE); URINE WBC 0-2 /hpf
--- NOTE | 2020-06-15 22:19 | NUR ---
MORPHINE 2MG IVP GIVEN FOR ABD CRAMPS, WELL DOSE OF MYLICON PO. HAVE NGT OFF AT THIS TIME FOR HS MEDS GIVEN PO.
--- NOTE | 2020-06-15 22:50 | NUR ---
NGT BACK TO LIS.
[2020-06-16 00:48] VITALS: BP 117/58; PULSE 103; TEMP 97.6
--- NOTE | 2020-06-16 04:15 | NUR ---
MORPHINE 2MG IVP GIVEN AT THIS TIME. DID NOT GIVE ORAL TRAMADOL.
[2020-06-16 05:09] VITALS: BP 111/55; PULSE 95; TEMP 98
[2020-06-16 07:34] VITALS: BP 120/71; PULSE 99; TEMP 97.6
--- NOTE | 2020-06-16 07:35 | NUR ---
PATIENT NG TUBE TO LIS. PATIENT ASSISTED BACK TO BED FROM BATHROOM.
[2020-06-16 08:47] LABS: BASO % 0.5 % (0.0-2.0); EOS # 0.2 (0.0-0.7); EOS % 3.4 % (0-4.0); GRAN # 3.9 (1.4-6.5); GRAN % 63.8 % (42.2-75.2); LYMPH # 1.3 (1.2-3.4); LYMPH % 20.7 % (20.0-51.0); MEAN CELL VOLUME 88 fl (80.0-100.0); MEAN CORPUSCULAR HGB CONC 30 g/dl (33.0-37.0); MEAN PLATELET VOLUME 9.1 fl (7.4-10.4); MONO # 0.7 (0.1-0.6); MONO % 10.8 % (1.7-9.3); RED BLOOD COUNT 3.46 M/mm3 (4.10-5.30); REDCELL DISTRIBUTION WIDTH-CV 19.5 % (11.5-14.5)
[2020-06-16 08:48] LABS: HEMATOCRIT 30.3 % (37.0-47.0); HEMOGLOBIN 9.2 g/dl (12.5-16.0); MEAN CORPUSCULAR HEMOGLOBIN 27 pg (27.0-31.0); PLATELET COUNT 310 K/mm3 (130-400)
[2020-06-16 09:00] LABS: CALCIUM 8.6 mg/dL (8.4-10.2); CREATININE, serum 0.47 (0.52-1.25); POTASSIUM 3.9 mmol/L (3.4-5.0)
--- NOTE | 2020-06-16 09:50 | NUR ---
PATIENT SHIFT ASSESSMENT COMPLETE. PATIENT DENIES PAIN AT THIS TIME. NG TUBE CLAMPED FOR AM MEDICATIONS AT THIS TIME. NG SECURED TO LEFT NARE. ABDOMEN IS DISTENDED. ILEOSTOMY REVERSAL SITE REDDENED. BOWEL SOUNDS ACTIVE. POSITIVE PEDAL PULSES EQUAL BILATERALLY. CALL LIGHT WITHIN REACH. PATIENT DENIES ANY NEEDS AT THIS TIME.
--- NOTE | 2020-06-16 10:30 | NUR ---
PATIENT NG TUBE RECONNECTED TO LIS AFTER MORNING MEDICATIONS.
--- NOTE | 2020-06-16 11:30 | NUR ---
PATIENT DENIES PAIN AT THIS TIME. PATIENT NG TUBE CLAMPED PER ORDERS. PATIENT ASSISTED TO BATHROOM AND BACK TO BED. CALL LIGHT WITHIN REACH.
[2020-06-16 12:00] VITALS: BP 131/77; PULSE 100; TEMP 97.5
--- NOTE | 2020-06-16 12:33 | NUR ---
PATIENT TOLERATING SMALL AMOUNTS OF CLEAR LIQUIDS WITHOUT ANY INCREASE IN PAIN OR ANY COMPLAINTS OF NAUSEA. IV FLUID RATE DECREASED TO 100ML/HR PER ORDERS. NO OTHER NEEDS AT THIS TIME.
--- NOTE | 2020-06-16 13:00 | NUR ---
PATIENT REPORTS THAT SHE HAD A LOOSE GREEN COLORED STOOL, AND IS NOW PASSING A LOT OF GAS.
--- NOTE | 2020-06-16 16:30 | NUR ---
Care resumed from [facility]-bedside shift report was obtained. Patient assisted with hygiene. We ambulated halls, she was steady with walker. Dyspnea with exertion. Ivf to PICC per orders. Ice water provided. She deneis nausea. Ng tube clamped. Up to the bathroom & voided, Reports BM today. Scds ble, edema noted. Abdomen soft, rounded. Reddness noted to prior colostomy site. Nj carias.
[2020-06-16 16:59] VITALS: BP 128/72; PULSE 99; TEMP 97.8
--- NOTE | 2020-06-16 17:47 | NUR ---
Patient resting in bed. Her daughter at bedside. She is tolerating a clear liquid dinner tray, just taking it slowly. She refused ultram at this time.
--- NOTE | 2020-06-16 18:56 | NUR ---
RECEIVED CHANGE OF SHIFT REPORT FROM DAY SHIFT NURSE. NG CLAMPED AND IN PLACE.
--- NOTE | 2020-06-16 19:35 | NUR ---
PATIENT RESTING WITH EYES CLOSED/SLEEPING, DOESNOT WAKE WHEN STAFF ENTERS ROOM. OBSERVED BREATHING NONLABORED AND EVEN. IVF INFUSING WITH NO PROBLEMS.
[2020-06-16 19:49] VITALS: BP 126/68; PULSE 99; TEMP 98.3
--- NOTE | 2020-06-16 20:21 | NUR ---
REFUSED SCHEDULED MIRALAX. DENIES NAUSEA/CHEST PAIN/SOA AT THIS TIME. DENIES PASSING FLATUS BUT DENIES ABD BLOATING. NG REMAINS CLAMPED. PATIENT REPORTED AND THIS NURSE OBSERVED DRAINAGE FROM R LATERAL END OF RIGHT UPPER ABD INCISION WHICH HAS REDNESS TO SURROUNDING TISSUE NEAR INCISION BUT DENIES PAIN WITH TOUCH AND NO INDURATION OBSERVED. DRAINAGE INITIALLY SEROUS TO OPAQUE TANNISH/RED TINGED WITH NO ODOR OBSERVED WITH DRAINAGE. FOLDED 4X4 GUAZE APPLIED TO DRAINING SITE COVERED WITH 3 IN PAPER TAPE.
--- NOTE | 2020-06-16 23:15 | NUR ---
PATIENT SLEEPING, DOES NOT WAKE WHEN DOOR TO ROOM IS OPENED BY STAFF. OBSERVED BREATHING NONLABORED AND EVEN. IVF INFUSING WITH NO PROBLEMS. TELE IN PLACE.
[2020-06-17 00:17] VITALS: BP 128/66; PULSE 93; TEMP 97.8
[2020-06-17 03:51] VITALS: BP 118/62; PULSE 95; TEMP 97.7
--- NOTE | 2020-06-17 06:30 | NUR ---
Pt doing well at this time. NG clamped and pt reports feeling okay. Denies any needs at this time, call light within reach
[2020-06-17 06:37] LABS: BASO % 0.3 % (0.0-2.0); EOS # 0.2 (0.0-0.7); EOS % 2.9 % (0-4.0); GRAN % 68.4 % (42.2-75.2); LYMPH # 1.2 (1.2-3.4); LYMPH % 16.2 % (20.0-51.0); MEAN CELL VOLUME 88 fl (80.0-100.0); MEAN CORPUSCULAR HGB CONC 30 g/dl (33.0-37.0); MEAN PLATELET VOLUME 9.4 fl (7.4-10.4); MONO # 0.9 (0.1-0.6); MONO % 11.7 % (1.7-9.3); PLATELET COUNT 300 K/mm3 (130-400); REDCELL DISTRIBUTION WIDTH-CV 18.8 % (11.5-14.5)
[2020-06-17 06:41] LABS: HEMATOCRIT 28.2 % (37.0-47.0); HEMOGLOBIN 8.5 g/dl (12.5-16.0); MEAN CORPUSCULAR HEMOGLOBIN 27 pg (27.0-31.0)
[2020-06-17 06:48] LABS: CALCIUM 8.7 mg/dL (8.4-10.2); CREATININE, serum 0.47 (0.52-1.25); POTASSIUM 3.3 mmol/L (3.4-5.0)
--- NOTE | 2020-06-17 07:20 | NUR ---
CHANGE OF SHIFT REPORT GIVEN TO DAY SHIFT NURSE, SLAVA CAMPOS.
[2020-06-17 07:52] VITALS: BP 125/75; PULSE 96; TEMP 97.5
--- NOTE | 2020-06-17 08:44 | NUR ---
Pt doing well this morning. She reports having liquid stools, she has tolerated her liquid breakfast. She is currently up walking with PT.
--- NOTE | 2020-06-17 11:30 | NUR ---
Discussed drainage from old ostomy site with Dr Simms. Informed him that the dressing was saturated upon my assessment and a new dressing applied.
[2020-06-17 11:45] VITALS: BP 129/67; PULSE 96; TEMP 97.5
--- NOTE | 2020-06-17 12:24 | NUR ---
Pt doing well. Reports pain 4/10, pain medication given. Doing well with NG out. She is currently working on liquid lunch. No other needs verbalized, will continue to monitor
--- NOTE | 2020-06-17 13:13 | NUR ---
Pt does not have much of an appetite right now. Minimal amount of her lunch drank. She is aware that she can have something at any time. No needs verbalized, call light within reach
[2020-06-17 16:24] VITALS: BP 118/72; PULSE 95; TEMP 98.2
[2020-06-17 19:10] VITALS: BP 98/49; PULSE 100; TEMP 98.4
[2020-06-18 01:01] VITALS: BP 101/72; PULSE 79; TEMP 98.6
[2020-06-18 04:40] VITALS: BP 97/55; PULSE 88; TEMP 97.9
[2020-06-18 06:12] LABS: MEAN CELL VOLUME 88 fl (80.0-100.0); MEAN CORPUSCULAR HGB CONC 31 g/dl (33.0-37.0); MEAN PLATELET VOLUME 9.7 fl (7.4-10.4); PLATELET COUNT 268 K/mm3 (130-400); RED BLOOD COUNT 3.15 M/mm3 (4.10-5.30); REDCELL DISTRIBUTION WIDTH-CV 18.8 % (11.5-14.5)
[2020-06-18 06:23] LABS: HEMATOCRIT 27.7 % (37.0-47.0); HEMOGLOBIN 8.5 g/dl (12.5-16.0); MEAN CORPUSCULAR HEMOGLOBIN 27 pg (27.0-31.0)
[2020-06-18 06:30] LABS: CALCIUM 8.5 mg/dL (8.4-10.2); CREATININE, serum 0.46 (0.52-1.25); MAGNESIUM 2.1 mg/dL (1.6-2.3); POTASSIUM 3.6 mmol/L (3.4-5.0)
--- NOTE | 2020-06-18 07:07 | NUR ---
Patient lying in be watching television at 1900 on 06/17/20. Patient A&O X's 4. No requests or concerns verbalized by patient at this time.
[2020-06-18 07:58] VITALS: BP 104/57; PULSE 81; TEMP 98.5
--- NOTE | 2020-06-18 08:00 | NUR ---
pt. says she is not hungry so did not have breakfast;encouraged to try to eat something later this a.m.
--- NOTE | 2020-06-18 08:30 | NUR ---
Patient has been up and ambulated halls with therapy. Ultram managing pain. Attempting breakfast, minimal appetite. New dressing to RLQ, serous drainage noted on prior gauze. Picc to Int. Voiding adequately. Denies loose stool over night. Will monitor.
[2020-06-18 11:57] VITALS: BP 103/56; PULSE 96; TEMP 98
--- NOTE | 2020-06-18 12:00 | NUR ---
Patient resting in bed. Alert. Vss. Working on lunch, will jv.
--- NOTE | 2020-06-18 15:31 | NUR ---
Adjunct Professor Of Voice met with patient to follow up on discharge plan. SW spoke with patient about Home Health and patient states she would be open to it if her insurance would cover the services. Patient states she has had [facility] in the past and would like a referral to be sent to them. SW contacted Julia at [facility] and faxed referral. Awaiting screen.
--- NOTE | 2020-06-18 16:00 | NUR ---
New dressing to RLQ prior colostomy site, some pulrulent drainage noted on gauze. We ambulated touchet patient did well with walker. Spoke to Dr Rod this afternoon, update given. No new orders. Patient tolerating full liquids, dietary spoe to her about diet. Picc to INT. Will monitor.
[2020-06-18 16:40] VITALS: BP 98/55; PULSE 91; TEMP 98
--- NOTE | 2020-06-18 20:08 | NUR ---
Bedside report to Karley. New dressing to RLQ. New dressing applied drainage noted. Patient tolerated dinner, but it did increase her pain. Overall in postive spirits.
[2020-06-18 20:30] VITALS: BP 104/60; PULSE 96; TEMP 98
[2020-06-19 00:04] VITALS: BP 106/61; PULSE 81; TEMP 98.3
[2020-06-19 04:21] VITALS: BP 102/59; PULSE 73; TEMP 98.1
--- NOTE | 2020-06-19 05:56 | NUR ---
RESTED THROUGH OUT THE NIGHT. DSG TO LEFT L ABD, MIN DRAINAGE. PAIN MEDS SCHEDULED AND PROVIDED. UP TO VOID AMBULATES TO BR W NURSE ASST W WALKER. AM LABS DRAWN PER PICC LINE, PER PROTOCOL, FLUSHED AFTER DRAW. AM MEDS GIVEN. NEEDS MET.
[2020-06-19 07:18] LABS: MEAN CELL VOLUME 86 fl (80.0-100.0); MEAN CORPUSCULAR HGB CONC 31 g/dl (33.0-37.0); MEAN PLATELET VOLUME 9.5 fl (7.4-10.4); PLATELET COUNT 278 K/mm3 (130-400); RED BLOOD COUNT 3.29 M/mm3 (4.10-5.30); REDCELL DISTRIBUTION WIDTH-CV 18.6 % (11.5-14.5)
[2020-06-19 07:20] VITALS: BP 108/55; PULSE 93; TEMP 98.4
[2020-06-19 07:20] LABS: HEMATOCRIT 28.3 % (37.0-47.0); HEMOGLOBIN 8.8 g/dl (12.5-16.0); MEAN CORPUSCULAR HEMOGLOBIN 27 pg (27.0-31.0)
[2020-06-19 07:41] LABS: CALCIUM 9.2 mg/dL (8.4-10.2); CREATININE, serum 0.47 (0.52-1.25); MAGNESIUM 1.9 mg/dL (1.6-2.3); POTASSIUM 3.6 mmol/L (3.4-5.0)
--- NOTE | 2020-06-19 09:00 | NUR ---
patient lying in bed watching tv. Remove breakfast tray. Patient ate all of her breakfst and milk. In good mood
--- NOTE | 2020-06-19 11:22 | NUR ---
VSS SHIFT ASSESSEMENT COMPLETED PICC LINE INTACT ABD DRESSING CHANGE SMALL YELLOW/GREEN PURULENT DRAINAGE, CLEANSED W/NS APPLIED 2X2 GAUZE W/TEGADERM. GOOD APPETITE, NO COMPLAINTS OF PAIN.
--- NOTE | 2020-06-19 13:57 | NUR ---
Energy Engineer contacted Julia at [facility] who advised the referral was received and they can accept patient. SW will continue to follow.
[2020-06-19 17:19] VITALS: BP 101/50; PULSE 98; TEMP 98.3
--- NOTE | 2020-06-19 18:30 | NUR ---
Patient did well today. She did not have too much pain. No complaints of nausea. Around lunch time she started having increased drainage from her incision site, it is thick and yellow drainage. Incision is red at site. Abdomen is not red. Her dressing has been changed about 4 times this shift. No other changes at this time. Call light within reach. Patient has walked in the hallways a few times today.
[2020-06-19 20:36] VITALS: BP 111/61; PULSE 93; TEMP 98.7
--- NOTE | 2020-06-19 22:02 | NUR ---
1999-PT SETTING UP IN BED, ASSESSMENT AND VITALS COMPLETE. PT HAVING LOOSE STOOLS, REF MIRALAX DID TAKE STOOL SOFTNER. PAIN CONTROLLED WELL W SCHEDULED TRAMADOL. DSG TO RT LOWER ABD, SMALL (UBALDO)SIZE DRAINAGE. DENIES SOA, CHEST PAIN OR DIZZY. NO NAUSEA. BM TODAY. POC DISCUSSED WILL BE NPO AT MIDNIGHT FOR CT TOMORROW AM. NEEDS MET
[2020-06-20 00:51] VITALS: BP 103/50; PULSE 89; TEMP 98.4
--- NOTE | 2020-06-20 02:25 | NUR ---
PT RESTING WITH EYES CLOSED. RESP EVEN AND UNLABORED. NPO FOR CT SCAN IN AM.
[2020-06-20 04:05] VITALS: BP 101/55; PULSE 86; TEMP 98.5
--- NOTE | 2020-06-20 05:50 | NUR ---
PT RESTED THROUGH THE NIGHT WITHOUT INCIDENT. HAS BEEN NPO SINCE BEFORE MIDNIGHT. LABS DRAWN FROM PICC LINE THIS MORNING, FLUSHED AND GOOD BLOOD RETURN TO [place]. UNSURE OF TIME FOR CT THIS AM. WILL UPDATE PT MORE INFORMATION IS AVAILABLE. NEEDS MET.
[2020-06-20 07:05] LABS: BASO % 0.7 % (0.0-2.0); EOS # 0.2 (0.0-0.7); EOS % 3.6 % (0-4.0); GRAN # 3.3 (1.4-6.5); GRAN % 58.5 % (42.2-75.2); LYMPH # 1.3 (1.2-3.4); LYMPH % 23.5 % (20.0-51.0); MEAN CELL VOLUME 87 fl (80.0-100.0); MEAN CORPUSCULAR HGB CONC 30 g/dl (33.0-37.0); MEAN PLATELET VOLUME 9.8 fl (7.4-10.4); MONO # 0.7 (0.1-0.6); MONO % 13.3 % (1.7-9.3); PLATELET COUNT 319 K/mm3 (130-400); RED BLOOD COUNT 3.62 M/mm3 (4.10-5.30); REDCELL DISTRIBUTION WIDTH-CV 18.8 % (11.5-14.5)
[2020-06-20 07:11] LABS: HEMATOCRIT 31.6 % (37.0-47.0); HEMOGLOBIN 9.6 g/dl (12.5-16.0); MEAN CORPUSCULAR HEMOGLOBIN 27 pg (27.0-31.0)
[2020-06-20 07:29] LABS: CREATININE, serum 0.6 (0.52-1.25)
[2020-06-20 07:30] LABS: CALCIUM 9.9 mg/dL (8.4-10.2); POTASSIUM 3.9 mmol/L (3.4-5.0)
[2020-06-20 07:37] LABS: PRE ALBUMIN 24.2 mg/dL (17.6-36.0)
[2020-06-20 08:24] VITALS: BP 101/52; PULSE 89; TEMP 98.3
--- NOTE | 2020-06-20 11:30 | NUR ---
After patient drank her contrast for the CT this am, she started having a large amount of drainage from the right lower incision. Notified Dr Rod, he said that if her drainage gets worse to place a colostomy appliance and bag over the site to catch the drainage. Spoke with the patient about it and she is comfortable with that. Restarted her diet to low residue. No other changes at this time. Call light within reach.
[2020-06-20 12:45] VITALS: BP 106/67; PULSE 101; TEMP 98.4
[2020-06-20 15:38] VITALS: BP 101/56; PULSE 93; TEMP 98
--- NOTE | 2020-06-20 18:30 | NUR ---
Patient has been doing well this afternoon. She is getting up in the room well without assist. Pain well controlled with Scheduled ultram. We did place a colostomy bag over incision to catch the drainage this afternoon. She had 30ml of brown thick drainage, it is cloudy. No odor noted. No complaints of nausea today. Zofran given once this morning before drinking the contrast so she wouldn't get sick from it. No other changes at this time. Call light within reach.
[2020-06-20 19:28] VITALS: BP 94/48; PULSE 99; TEMP 98.1
--- NOTE | 2020-06-20 21:00 | NUR ---
Patient resting in bed with no complaints of pain or nausea. Colostomy bag over abdominal incision. Brown drainage noted. PICC to right upper arm. Patient has no other needs. Call light in reach.
[2020-06-21 00:44] VITALS: BP 88/53; PULSE 92; TEMP 97.9
--- NOTE | 2020-06-21 01:30 | NUR ---
Patient's blood pressure is soft. PAtient is not symptomatic and states she has not had a lot of fluids today. Encouraged patient to drink lots of fluids.
[2020-06-21 04:32] VITALS: BP 99/56; PULSE 98; TEMP 97.9
--- NOTE | 2020-06-21 06:22 | NUR ---
Patient has no complaints of pain this morning. 40 mls of brown drainage emptied from colostomy bag. No other needs at this time. Will report off to day shift.
[2020-06-21 06:28] LABS: BASO % 0.4 % (0.0-2.0); EOS # 0.3 (0.0-0.7); EOS % 3.2 % (0-4.0); GRAN # 5.8 (1.4-6.5); LYMPH # 1.3 (1.2-3.4); LYMPH % 15.5 % (20.0-51.0); MEAN CELL VOLUME 88 fl (80.0-100.0); MEAN CORPUSCULAR HGB CONC 30 g/dl (33.0-37.0); MEAN PLATELET VOLUME 9.8 fl (7.4-10.4); MONO # 1.1 (0.1-0.6); MONO % 12.3 % (1.7-9.3); PLATELET COUNT 329 K/mm3 (130-400); RED BLOOD COUNT 3.74 M/mm3 (4.10-5.30); REDCELL DISTRIBUTION WIDTH-CV 18.6 % (11.5-14.5)
[2020-06-21 06:40] LABS: CALCIUM 9.6 mg/dL (8.4-10.2); CREATININE, serum 0.62 (0.52-1.25)
[2020-06-21 06:43] LABS: HEMOGLOBIN 9.8 g/dl (12.5-16.0); MEAN CORPUSCULAR HEMOGLOBIN 26 pg (27.0-31.0)
[2020-06-21 08:25] VITALS: BP 94/51; PULSE 104; TEMP 98
--- NOTE | 2020-06-21 10:00 | NUR ---
Patient is doing well today. She is hoping to go home today. Her BP is a little low. We did not give the ultram to see if that helps. She denies pain, her pain has been well controlled and is doing much better. Denies pain and nausea. Ostomy appliance to incision is still intact. Brownish/green drainage int the bag. She has been independent in the room. No other changes at this time. Call light within reach.
[2020-06-21] MEDS ORDERED: ULTRAM 50MG TAB50 MG PO (11:47)
[2020-06-21 12:02] VITALS: BP 105/53; PULSE 106; TEMP 98.3
--- NOTE | 2020-06-21 13:36 | NUR ---
Patient to discharge home today with her daughter and [facility]. BRYNN faxed discharge orders to Julia at [facility].
--- NOTE | 2020-06-21 14:00 | NUR ---
Patient is discharging home. Discharge instructions discussed with patient. No questions verbalized. PICC line discontinued by [facility]. All her belongings packed up and sent with patient. Her daughter is here to pick her up. Explained when follow up appointments are and that she has a script to machine pecan picker when she leaves. Copies of discharge instructions sent with patient. Patient walked out via wheel chair.
== END 2020-06-21 14:00 | disposition home health service (06) | DRG 872 ==
LOC: COL.ER 19:03 → SURG 23:28
PROVIDERS: Emergency Medicine; Hospitalist; Physician Assistant; Surgery; ADMIT Surgery
PROC: 02HV33Z Insertion of Infusion Device into Superior Vena Cava, Percutaneous Approach (ICD-10-PCS; principal; 2020-06-11)
DX: A41.9 Sepsis, unspecified organism (principal); K56.7 Ileus, unspecified; E87.2 Acidosis; D64.9 Anemia, unspecified; R00.0 Tachycardia, unspecified; E87.6 Hypokalemia; F32.9 Major depressive disorder, single episode, unspecified; D72.829 Elevated white blood cell count, unspecified; E78.5 Hyperlipidemia, unspecified; F17.210 Nicotine dependence, cigarettes, uncomplicated; Z79.82 Long term (current) use of aspirin; Z79.891 Long term (current) use of opiate analgesic; Z85.3 Personal history of malignant neoplasm of breast; Z90.721 Acquired absence of ovaries, unilateral
CPT/HCPCS: 99223; 99232-AI; C1751; J0610; J0696; J1170; J1650; J2270; J2405; J2543; J3475; J3480; J7030; J7040; J7120; J7131; Q9967

== ENCOUNTER 2020-09-02 18:34 | Emergency (ER) | payer MEDICAID ==
[~2020-09-02] VITALS: Ht 165.1 cm; Wt 54.5 kg
[2020-09-02 19:55] LABS: BASO % 0.3 % (0.0-2.0); EOS # 0.2 (0.0-0.7); EOS % 1.9 % (0-4.0); GRAN # 8.2 (1.4-6.5); GRAN % 71.4 % (42.2-75.2); HEMATOCRIT 37.1 % (37.0-47.0); HEMOGLOBIN 12.2 g/dl (12.5-16.0); LYMPH # 1.8 (1.2-3.4); LYMPH % 15.3 % (20.0-51.0); MEAN CELL VOLUME 78 fl (80.0-100.0); MEAN CORPUSCULAR HEMOGLOBIN 26 pg (27.0-31.0); MEAN CORPUSCULAR HGB CONC 33 g/dl (33.0-37.0); MEAN PLATELET VOLUME 9.1 fl (7.4-10.4); MONO # 1.2 (0.1-0.6); MONO % 10.8 % (1.7-9.3); PLATELET COUNT 317 K/mm3 (130-400); RED BLOOD COUNT 4.73 M/mm3 (4.10-5.30); REDCELL DISTRIBUTION WIDTH-CV 14.8 % (11.5-14.5)
[2020-09-02 20:08] LABS: ALBUMIN 4.4 gm/dL (3.5-5.0); BILIRUBIN,TOTAL 0.2 mg/dL (0.0-1.0); C-REACTIVE PROTEIN 2.4 mg/dL (0.0-0.9); CALCIUM 9.4 mg/dL (8.4-10.2); CREATININE, serum 0.47 (0.52-1.25); POTASSIUM 3.6 mmol/L (3.4-5.0); TOTAL PROTEIN 8.1 gm/dL (6.4-8.2)
[2020-09-02 20:55] LABS: COLLECTION METHOD CLEAN CATCH
[2020-09-02 21:15] LABS: PH 7 (5-8); SQUAMOUS EPITHELIAL None Seen /hpf; URINE APPEARANCE Clear; URINE BACTERIA None Seen /hpf; URINE BILIRUBIN Negative (NEGATIVE); URINE BLOOD Negative (NEGATIVE); URINE COLOR Yellow; URINE GLUCOSE Negative (NEGATIVE); URINE KETONE Negative (NEGATIVE); URINE LEUKOCYTE ESTERASE 1+ (NEGATIVE); URINE NITRATE Negative (NEGATIVE); URINE PROTEIN(semi-quant) Negative (NEGATIVE); URINE RBC 0-2 /hpf; URINE UROBILINOGEN Negative (NEGATIVE)
[2020-09-02] MEDS ORDERED: AMOXICILLIN 8751 TAB PO (22:32)
[2020-09-02 23:19] VITALS: BP 127/68; PULSE 90; TEMP 98.2
--- NOTE | 2020-09-05 10:51 | NUR ---
Systems Software Specialist received a consult for patient who is having difficulty obtaining her ostomy supplies. SW contacted patient who advised she orders her supplies through [facility]. Patient reports that her insurance coverage recently switched from [employer] to Medicaid. Patient advised that she has a follow up scheduled with [facility] associates on at 1500. SW contacted [facility] and was advised that they are actually not contracted with Medicaid so they would not be able to provide supplies to patient anymore. SW was advised that [facility], [facility], and [facility] are contracted with Medicaid. SW contacted [facility] and [facility], both do not carry ostomy supplies. SW contacted [facility] and was advised they are contracted with Medicaid and carry ostomy supplies. SW provided patient information to the outbound call center representative at [facility]. SW then followed up with patient who advised she received a phone call from [facility] and they are going to ship out supplies to her tomorrow. Patient states [facility] obtained her insurance information and contact information for Dr. Rod. SW provided patient with SW contact information in case there are any more issues.
--- NOTE | 2020-09-20 16:18 | NUR ---
Cloud Infrastructure Architect received a phone call from patient who advised [facility] can no longer send out her supplies to her. SW contacted [facility] who advised they can order ostomy supplies if they get orders. BRYNN provided this information to patient who will contact [facility] and coordinate with her surgeon's office to have them fax over orders.
== END 2020-09-02 23:15 | disposition home or self-care (01) ==
LOC: COL.ER 18:34
PROVIDERS: Nurse Practitioner Primary Care
DX: L02.211 Cutaneous abscess of abdominal wall (principal); K59.00 Constipation, unspecified; R19.00 Intra-abdominal and pelvic swelling, mass and lump, unspecified site; E78.5 Hyperlipidemia, unspecified; F32.9 Major depressive disorder, single episode, unspecified; Z87.891 Personal history of nicotine dependence; Z90.89 Acquired absence of other organs; Z79.899 Other long term (current) drug therapy
CPT/HCPCS: J1885; J7030; Q9967

== ENCOUNTER 2020-09-18 23:57 | Emergency (ER) | payer MEDICAID ==
[~2020-09-18] VITALS: Ht 165.1 cm; Wt 56.8 kg
[2020-09-19 00:31] LABS: HEMOGLOBIN 11.6 g/dl (12.5-16.0); MEAN CELL VOLUME 80 fl (80.0-100.0); MEAN CORPUSCULAR HEMOGLOBIN 26 pg (27.0-31.0); MEAN CORPUSCULAR HGB CONC 32 g/dl (33.0-37.0); MEAN PLATELET VOLUME 9.1 fl (7.4-10.4); PLATELET COUNT 271 K/mm3 (130-400); RED BLOOD COUNT 4.53 M/mm3 (4.10-5.30); REDCELL DISTRIBUTION WIDTH-CV 15.4 % (11.5-14.5)
[2020-09-19 00:33] LABS: HEMATOCRIT 36.3 % (37.0-47.0)
[2020-09-19 00:37] LABS: ALBUMIN 3.9 gm/dL (3.5-5.0); BILIRUBIN,TOTAL 0.2 mg/dL (0.0-1.0); CALCIUM 8.7 mg/dL (8.4-10.2); CREATININE, serum 0.41 (0.52-1.25); POTASSIUM 3.5 mmol/L (3.4-5.0); TOTAL PROTEIN 7.4 gm/dL (6.4-8.2)
[2020-09-19 00:51] LABS: BAND 7 % (0-10); BASOPHIL 1 % (0-2); EOSINOPHIL 1 % (0-4); LYMPHOCYTE 7 % (20.0-51.0); METAMYELOCYTE 2 % (0-0); MYELOCYTE 7 % (0-0); NEUTROPHILS 69 % (42.0-75.2)
[2020-09-19 00:52] LABS: ANISOCYTOSIS 1+; HYPOCHROMIA 1+; PLATELET ESTIMATE NORMAL (NORMAL)
[2020-09-19 04:09] LABS: COLLECTION METHOD CLEAN CATCH
[2020-09-19 04:18] LABS: MUCOUS Present /lpf; PH 7 (5-8); SQUAMOUS EPITHELIAL 0-2 /hpf; URINE APPEARANCE Clear; URINE BACTERIA None Seen /hpf; URINE BILIRUBIN Negative (NEGATIVE); URINE BLOOD Negative (NEGATIVE); URINE COLOR Yellow; URINE GLUCOSE Negative (NEGATIVE); URINE KETONE 1+ (NEGATIVE); URINE LEUKOCYTE ESTERASE Negative (NEGATIVE); URINE NITRATE Negative (NEGATIVE); URINE PROTEIN(semi-quant) Negative (NEGATIVE); URINE UROBILINOGEN Negative (NEGATIVE)
[2020-09-19 04:50] VITALS: BP 136/89; PULSE 87; TEMP 97.7
== END 2020-09-19 04:50 | disposition home or self-care (01) ==
LOC: COL.ER 23:57
PROVIDERS: Emergency Medicine
DX: R10.9 Unspecified abdominal pain (principal); R11.2 Nausea with vomiting, unspecified; E78.5 Hyperlipidemia, unspecified; F32.9 Major depressive disorder, single episode, unspecified; Z93.2 Ileostomy status; Z90.49 Acquired absence of other specified parts of digestive tract; Z90.721 Acquired absence of ovaries, unilateral; Z87.891 Personal history of nicotine dependence; Z79.899 Other long term (current) drug therapy
CPT/HCPCS: J1170; J2405; Q9967

== ENCOUNTER 2020-10-29 15:47 | Inpatient (IN) | payer MEDICAID ==
[~2020-10-29] VITALS: Ht 165.1 cm; Wt 55.3 kg
[2020-11-14] VITALS (10 sets, daily range): BP systolic 110–133; BP diastolic 65–74; PULSE 82–97; TEMP 98.1–99.3
--- NOTE | 2020-11-14 06:40 | NUR ---
Patient is taken to the PACU at this time by [facility] OR staff, for a pre-op epidural with [facility]. BETH Orellana is notified that Dr. Rod needs to complete a H&P prior to OR and acknowledges this. Patient's belongings are taken to the PACU at this time.
--- NOTE | 2020-11-14 11:00 | NUR ---
Patient arrived to the floor via the bed at 1005. Oriented patient to room. She has and epidural in place, explained how it works to control pain. No questions verbalized. Patient is alert but drowsy. Denies pain at this time. Alas catheter in place, secured to right leg. Urine output is damaris and clear. Midline incision dressing is C/D/I. No drainage from ostomy take down site. Patient was excited that they were able to take down the ostomy. No other changes at this time. Call light within reach.
--- NOTE | 2020-11-14 18:30 | NUR ---
Patient has been doing well this afternoon. No complaints of pain or nausea. Pain has been controlled by epidural. Dressings to abdomen remains C/D/I. Urine output has been low, notified Dr Rod, he said to watch for tonight and to keep the fluids running through the night. Patient is tolerating clear liquid diet without isses. No other changes at this time. Call light within reach.
--- NOTE | 2020-11-14 19:11 | NUR ---
RECEIVED CHANGE OF SHIFT REPORT FROM DAY SHIFT NURSE.
[2020-11-15] VITALS (7 sets, daily range): BP systolic 98–128; BP diastolic 55–72; PULSE 85–91; TEMP 98–98.8
--- NOTE | 2020-11-15 05:45 | NUR ---
EPIDURAL IN PLACE, PATIENT REPORTS HAS NOT HAD TO USE SELF BOLUS BUTTON THIS SHIFT. DENIES NAUSEA THROUGH OUT SHIFT. LOVELL CATHETER IN PLACE AND DRAINING WITH NO PROBLEMS. IV FLUIDS INFUSING WITH NO PROBLEMS.
--- NOTE | 2020-11-15 06:59 | NUR ---
CHANGE OF SHIFT REPORT GIVEN TO DAY SHIFT NURSE, HITESH CAMPOS.
--- NOTE | 2020-11-15 10:41 | NUR ---
Sw met with the pt who stated her preference to return home with her daughter in [place], [place] for support once medically cleared. The pt lives at home with her . The pt next of kin/DPOA-HC is Juanita Arora, daughter (ph ). The pt states she is independent on al ADLs, but (as needed) uses a cane or walker, but rarely uses them. The pt PCP is Saeed Umana and she gets her medications from [facility] pharmacy and she has not trouble obtaining the cost. The pt has used HH services before from [facility]. No other needs stated at this time. Sw to wait further recommendations and follow up as needed. D/C:Home with daughter.
--- NOTE | 2020-11-15 14:00 | NUR ---
Patient is doing well this morning. She has been up walking in the hallways. Urine output is much better. IV to INT. Epidural is working to control pain well. Bowel sounds are audible, has not passed gas yet. No complaints of nausea. Dressings to abdomen are C/D/I. She is alert and oriented. No other changes at this time. Call light within reach.
--- NOTE | 2020-11-15 14:17 | NUR ---
This RN received report from BETH Cesar. Patient is currently resting in bed watching television. Tali noticed that the patient's legs were looking edematous and that there was an order for the IV to be INT'd, so Tali stopped the fluids. Patient is still receiving pain medication via epidural.
--- NOTE | 2020-11-15 23:54 | NUR ---
Patient assessed around 2039. Alert and oriented, and able to make needs known. Denies having pain and discomfort. Epidural in place. Peripheral INT to right forearm. Denies having SOB and dyspnea. LS CTA. Respirations even and unlabored. HRR. Capillary refill less than 3 seconds. Non-tenting skin turgor. BSAx4, hypoactive in left lower quadrant. Reports not being able to pas gas yet. Abdomen soft. Surgical site to abdomen x 2 CDI. No edema. Voices no questions, needs, or concerns at this time. Resting in bed with call light within reach.
[2020-11-16] VITALS (7 sets, daily range): BP systolic 92–133; BP diastolic 49–76; PULSE 77–98; TEMP 97.5–98.6
--- NOTE | 2020-11-16 06:01 | NUR ---
Patient has been resting in bed with call light within reach. Continues on Epidural. Denies having pain and discomfort. Voices no questions, needs, or concerns at this time.
--- NOTE | 2020-11-16 11:24 | NUR ---
First visit from the climbing guide. No needs right now.
--- NOTE | 2020-11-16 12:30 | NUR ---
Patient is doing well this morning. Epidural and wiggins catheter discontinued this morning. Explained the pain medications ordered and how often she can have them. Patient has been independent in the room without issues. She stateded she had a liquid/loose stool this morning. No other changes at this time. Call light within reach.
--- NOTE | 2020-11-16 18:30 | NUR ---
Patient did well this afternoon. She had some nausea, she thought fromt he pain meds. She is voiding without issues after her catheter was discontinued. Pain has been controlled well with tylenol and ultram. Zofran given once for nausea this shift but no other issues. Tolerating regular diet. No other changes at this time. Call light within reach.
--- NOTE | 2020-11-16 19:04 | NUR ---
RECEIVED CHANGE OF SHIFT REPORT FROM DAY SHIFT NURSE. PATIENT DENIES ANY NEEDS AT TIME OF REPORT.
--- NOTE | 2020-11-16 23:16 | NUR ---
REPORTS PASSED SOME FLATUS WITH LOOSE STOOL PASSED EARLIER TODAY. DENIES CHEST PAIN/SOA/NAUSEA AT THIS TIME. DENIES ANY OTHER NEEDS. SEE MAR FOR MEDS GIVEN.
[2020-11-17 03:44] VITALS: BP 136/80; PULSE 85; TEMP 98.1
--- NOTE | 2020-11-17 07:05 | NUR ---
CHANGE OF SHIFT REPORT GIVEN TO DAY SHIFT NURSERILEY RN.
[2020-11-17 08:00] VITALS: BP 131/69; PULSE 90; TEMP 98.3
[2020-11-17] MEDS ORDERED: DULOXETINE HCL40 MG PO (09:40)
[2020-11-17 13:11] VITALS: BP 123/81; PULSE 89; TEMP 97.5
--- NOTE | 2020-11-17 15:15 | NUR ---
Patient up and we ambulated halls. She did well steady on her feet with walker. Patient continues to tolerate meals. She reports she had another watery loose stool. very slight amount of blood noted, I asked her to let nurse see stool next time she goes. Patient remains in positive spirits.
--- NOTE | 2020-11-17 16:08 | NUR ---
Patient resting in bed. She did well with breakfast. Abdomen soft. midline abdomen lucius intact. Prior ostomy site-scab noted. tolerates meals. minimal complaints of pain. Will monitor.
[2020-11-17 16:38] VITALS: BP 125/74; PULSE 91; TEMP 97
--- NOTE | 2020-11-17 17:45 | NUR ---
Patient resting in bed. offerered another walk, she is wanting to wait until after dinner. dinner ordered. fresh ice water provided, denies other needs.
--- NOTE | 2020-11-17 19:00 | NUR ---
Patient sleeping soundly. bedside report to abdiaziz horton
[2020-11-17 20:06] VITALS: BP 126/80; PULSE 102; TEMP 98.9
[2020-11-17 23:31] VITALS: BP 124/79; PULSE 99; TEMP 98.4
[2020-11-18 03:37] VITALS: BP 101/68; PULSE 93; TEMP 97.5
--- NOTE | 2020-11-18 07:00 | NUR ---
Report received from BETH Harrison. Pt in bed resting, denies needs, will continue to monitor.
--- NOTE | 2020-11-18 07:24 | NUR ---
PT IN BED. UP INDEPENDENTLY. TRAMADOL FOR PAIN. NO N/V. PT IS HOPEFUL SHE WILL BE DISCHARGED TODAY.
[2020-11-18 08:22] VITALS: BP 120/74; PULSE 101; TEMP 98.4
--- NOTE | 2020-11-18 10:00 | NUR ---
Assessment charted. PT in bed resting, states she feels [facility] better today, denies any pain. Having some bowel movements and passing gas. Taking PO well, feels foods are sitting fine. Denies needs, INT to RFA. Will continue to monitor.
[2020-11-18 10:05] LABS: ALBUMIN 3.8 gm/dL (3.5-5.0); CALCIUM 9.2 mg/dL (8.4-10.2); CREATININE, serum 0.55 (0.52-1.25); PHOSPHOROUS 3.7 mg/dL (2.5-4.5); POTASSIUM 3.6 mmol/L (3.4-5.0)
[2020-11-18 10:11] LABS: BASO % 0.3 % (0.0-2.0); EOS # 0.5 (0.0-0.7); EOS % 6.3 % (0-4.0); GRAN # 5.1 (1.4-6.5); GRAN % 67.1 % (42.2-75.2); HEMOGLOBIN 10.7 g/dl (12.5-16.0); LYMPH # 1.4 (1.2-3.4); LYMPH % 18.8 % (20.0-51.0); MEAN CELL VOLUME 83 fl (80.0-100.0); MEAN CORPUSCULAR HEMOGLOBIN 26 pg (27.0-31.0); MEAN CORPUSCULAR HGB CONC 31 g/dl (33.0-37.0); MEAN PLATELET VOLUME 8.9 fl (7.4-10.4); MONO # 0.5 (0.1-0.6); PLATELET COUNT 333 K/mm3 (130-400); RED BLOOD COUNT 4.18 M/mm3 (4.10-5.30); REDCELL DISTRIBUTION WIDTH-CV 15.7 % (11.5-14.5)
[2020-11-18 10:13] LABS: HEMATOCRIT 34.5 % (37.0-47.0)
[2020-11-18 11:53] VITALS: BP 104/61; PULSE 93; TEMP 98
[2020-11-18] MEDS ORDERED: ULTRAM 50MG TAB50 MG PO (13:02)
--- NOTE | 2020-11-18 14:10 | NUR ---
Discharge teaching completed at this time. INT dc'd, tip itnact. Pt received discharge packet, reviewed new scripts, f/u appointments, education, bathing restrictions and lifting restrictions answered all questions. Reviewed with daughter at bedise. Denies needs, pt left wtih all belongings, escorted out via w/c with daughter, daughter to drive home, criteria met.
== END 2020-11-18 14:10 | disposition home or self-care (01) | DRG 330 ==
LOC: INPTSU 11-14 05:15 → SURG 11-14 07:30
PROVIDERS: Surgery; ADMIT Surgery
PROC: 0DB80ZZ Excision of Small Intestine, Open Approach (ICD-10-PCS; principal; 2020-11-14 07:30)
PROC: 0DN80ZZ Release Small Intestine, Open Approach (ICD-10-PCS; 2020-11-14 07:30)
DX: K63.2 Fistula of intestine (principal); E44.0 Moderate protein-calorie malnutrition; Z20.822 Contact with and (suspected) exposure to COVID-19; Z68.20 Body mass index [BMI] 20.0-20.9, adult
CPT/HCPCS: A4314; A9284; J0690; J1100; J1650; J1885; J2250; J2405; J2550; J2704; J3010; J3480; J7120

== ENCOUNTER 2020-11-21 19:32 | Emergency (ER) | payer MEDICAID ==
[~2020-11-21] VITALS: Ht 165.1 cm; Wt 55.0 kg
[~2020-11-21 19:32] MED LIST changes: +DULOXETINE HCL40 MG PO
[2020-11-21 20:25] VITALS: BP 104/71; PULSE 104; TEMP 98.2
== END 2020-11-21 21:46 | disposition left against medical advice (07) ==
LOC: COL.ER 19:32
DX: R22.1 Localized swelling, mass and lump, neck (principal)

== ENCOUNTER → 2021-12-02 | Outpatient (CLI) | payer MEDICAID | LOC: MC.RAD 09:30 | DX: Z12.31 Encounter for screening mammogram for malignant neoplasm of breast (principal); Z85.3 Personal history of malignant neoplasm of breast; Z90.12 Acquired absence of left breast and nipple; Z92.3 Personal history of irradiation ==

== ENCOUNTER 2022-07-25 06:22 | Day surgery (SDC) | payer MEDICAID ==
[~2022-07-25] VITALS: Ht 162.6 cm; Wt 80.6 kg
[2022-07-25] VITALS (14 sets, daily range): BP systolic 115–139; BP diastolic 56–89; PULSE 95–113; TEMP 97.1–98.2
[~2022-07-25 06:22] MED LIST changes: +CALCIUM 600600 MG PO; -CALCIUM 600MG+D1 TAB PO; -CYMBALTA 20MG20 MG PO; +CYMBALTA 30MG30 MG PO; -DULOXETINE HCL40 MG PO; +EPA FISH OIL1 SGL PO; +MULTIVITAMIN FO1 CAP PO; -OMEGA-3 1000 MG1 CAP PO; -ONE-A-DAY ESSE1 EACH PO
[2022-07-25] MEDS ORDERED: PROBIOTIC BLEN1 EACH PO (07:34)
--- NOTE | 2022-07-25 07:56 | NUR ---
Dr. Rod is at the patient's bedside talking with her pre operatively regarding the scheduled surgery. The patient is then going to be taken over the recovery room to have a nerve block placed pre operatively and then will be taken to the operating room from there.
--- NOTE | 2022-07-25 12:59 | NUR ---
pt brought to room 329 from PACU. pt a&ox4. vss. lap sites are cdi. abdominal binder in place. pain is controlled. no needs at this time. call light in reach.
--- NOTE | 2022-07-25 13:59 | NUR ---
Initial visit; Dionna requested prayer prior to surgical procedure. Customer Service Assistant arrived and offered encouragement,comfort and prayer.
--- NOTE | 2022-07-25 17:16 | NUR ---
pt reports of a headache, cold washcloth given to provide some relief
[2022-07-26] VITALS (7 sets, daily range): BP systolic 104–134; BP diastolic 59–71; PULSE 86–97; TEMP 97.8–98.5
--- NOTE | 2022-07-26 01:32 | NUR ---
Pt shift assessment was completed at 2114. A&Ox4. Pain med requested due to pain scored at 7/10. Abdominal incision sites are CDI. Abdominal binder is in place. R wrist is CDI. Requested an ice pack for headache. No other needs or concers were expressed. O2 was lowered to 1L per NC. Pt tolerating well. SCDs on BLE. Belongings and call light within reach.
--- NOTE | 2022-07-26 07:18 | NUR ---
Shift report received from the night nurseKimmy LPN.
--- NOTE | 2022-07-26 08:34 | NUR ---
Patient sitting up in bed eating breakfast. Patient denies of episode of n/v. Patient reports of discomfort at the abdomen and pain in right shoulder. Patient was given the assurance that it's gas moving up the shoulder. I inform patient that she has orders to ambulate four times a day and verbalized understanding. Will assist patient to walk after breakfast. 4 Lap site in the abdomen dry and intact and bowel sounds audible. Call dickey within reach.
--- NOTE | 2022-07-26 10:53 | NUR ---
SW met with pt to complete intake. Pt reports she lives at home with her and she is independent on all ADLS and does not use any DME. Pt reports her PCP is Dr. Seaman and gets medications from [facility] with no issues. DPOA-HC is her daughter, Em @ [phone]. Pt reports she is interested in HH possible and her is currently using [facility]. No other needs stated at this time. SW to await for further recommendations and follow up as needed. DC: Home with daughter.
[2022-07-26] MEDS ORDERED: NORCO 325 MG-51 TAB PO (12:35)
--- NOTE | 2022-07-26 14:23 | NUR ---
Discharge instruction given , INT discontined, patient has no other questions. Patient escorted out of the facility at [id number].
== END 2022-07-26 13:59 | disposition home or self-care (01) ==
LOC: SDCO 06:22 → SURG 12:58 → SDCO 07-26 13:59
DX: K43.2 Incisional hernia without obstruction or gangrene (principal); K66.0 Peritoneal adhesions (postprocedural) (postinfection); Z28.310 Unvaccinated for COVID-19; F17.210 Nicotine dependence, cigarettes, uncomplicated
CPT/HCPCS: OP; A4314; C1781; J0690; J1100; J1170; J2250; J2370; J2405; J2704; J2795; J3010; J7120

== ENCOUNTER 2023-12-12 22:47 | Emergency (ER) | payer MEDICAID ==
[~2023-12-12] VITALS: Ht 167.6 cm; Wt 72.7 kg
[~2023-12-12 22:47] MED LIST changes: +PROBIOTIC BLEN1 EACH PO
[2023-12-12 22:55] VITALS: TEMP 97.8
[2023-12-12] MEDS ORDERED: Ondansetron 4 MG/2 ML VIAL IV ONE (23:30)
[2023-12-12] MEDS ORDERED: Ketorolac 30 MG/ML VIAL IV ONE (23:30)
[2023-12-12] MEDS ORDERED: NS 1,000 ML IV ONE (23:30)
[2023-12-12 23:33] LABS: BASO % 0.3 % (0.0-2.0); EOS # 0.2 K/mm3 (0.0-0.7); EOS % 1.5 % (0.0-4.0); GRAN # 8.2 K/mm3 (1.4-6.5); GRAN % 64.4 % (42.2-75.2); HEMATOCRIT 42.4 % (37.0-47.0); HEMOGLOBIN 14.6 g/dl (12.5-16.0); LYMPH # 2.9 K/mm3 (1.2-3.4); LYMPH % 22.7 % (20.0-51.0); MEAN CELL VOLUME 90 fl (80.0-100.0); MEAN CORPUSCULAR HEMOGLOBIN 31 pg (27-31); MEAN CORPUSCULAR HGB CONC 34 g/dl (33.0-37.0); MONO # 1.4 K/mm3 (0.1-0.6); MONO % 10.8 % (1.7-9.3); PLATELET COUNT 226 K/mm3 (130-400); REDCELL DISTRIBUTION WIDTH-CV 12.9 % (11.5-14.5)
[2023-12-12 23:38] LABS: PROTHROMBIN TIME 11.1 SECONDS (9.7-12.8)
[2023-12-12 23:46] LABS: ALBUMIN 3.8 g/dL (3.4-4.8); BILIRUBIN,TOTAL 0.6 mg/dL (0.2-1.2); CREATININE, serum 0.8 mg/dL (0.57-1.11); POTASSIUM 3.9 mEq/L (3.5-4.5)
[2023-12-13 00:35] LABS: COLLECTION METHOD CLEAN CATCH
[2023-12-13 00:40] LABS: URINE APPEARANCE TURBID (CLEAR/HAZY); URINE BLOOD 3+ (NEGATIVE); URINE GLUCOSE NEGATIVE (NEGATIVE); URINE KETONE NEGATIVE (NEGATIVE); URINE NITRATE POSITIVE (NEGATIVE); URINE PROTEIN(semi-quant) 3+ (NEGATIVE)
[2023-12-13 00:45] LABS: URINE COLOR OTHER (YELLOW)
[2023-12-13 01:03] LABS: URINE BACTERIA MANY /hpf (NONE SEEN); URINE RBC >50 /hpf (0-2); URINE WBC 20-50 /hpf (0-2)
[2023-12-13] MEDS ORDERED: cefTRIAXone 1 G in Water For Injection,Sterile 10 ML IV ONE (01:45)
[2023-12-13] MEDS ORDERED: SEPTRA DS 8001 TAB PO (03:00)
[2023-12-13] MEDS ORDERED: NORCO 325 MG-51 TAB PO (03:00)
[2023-12-13] MEDS ORDERED: ZOFRAN ODT4 MG PO (03:00)
[2023-12-13] MEDS ORDERED: PYRIDIUM200 M1 PO (03:00)
[2023-12-13 03:09] VITALS: BP 114/73; PULSE 87
== END 2023-12-13 03:09 | disposition home or self-care (01) ==
LOC: COL.ER 22:47
PROVIDERS: Emergency Medicine
DX: N12 Tubulo-interstitial nephritis, not specified as acute or chronic (principal); Z79.82 Long term (current) use of aspirin
CPT/HCPCS: J0696; J1885; J2405; J7030